=== PATIENT | male | born 1980 | race Caucasian/White ===

== ENCOUNTER 2019-09-07 22:02 | Emergency (ER) | payer MEDICAID ==
[~2019-09-07] VITALS: Ht 175.3 cm; Wt 79.4 kg
[2019-09-07 22:08] VITALS: BP_SYST 182
[2019-09-07 23:42] VITALS: BP_SYST 144
== END 2019-09-07 23:42 | disposition home or self-care (01) ==
LOC: SED 22:02
DX: L84 Corns and callosities (principal); I10 Essential (primary) hypertension; K21.9 Gastro-esophageal reflux disease without esophagitis; F17.200 Nicotine dependence, unspecified, uncomplicated
CPT/HCPCS: 99282

== ENCOUNTER 2021-10-21 03:21 | Emergency (ER) | payer MEDICAID ==
[~2021-10-21] VITALS: Ht 170.2 cm; Wt 81.6 kg
[2021-10-21 03:39] VITALS: BP_SYST 148
--- NOTE | 2021-10-21 05:00 | NUR ---
Pt placed in ER 4.
[2021-10-21] MEDS ORDERED: ONDANSETRON HCL 4 MG/2 ML VIAL IVP ONE (05:30)
[2021-10-21] MEDS ORDERED: KETOROLAC TROMETHAMINE 30 MG VIAL IVP ONE (05:30)
[2021-10-21] MEDS ORDERED: PIPERACILLIN/TAZO 3.375 GM in NS 50 ML IV ONE (05:30)
[2021-10-21] MEDS ORDERED: VANCOMYCIN HCL 1,000 MG in NS 250 ML IV ONE (05:30)
[2021-10-21] MEDS ORDERED: NACL 0.9% 1,000 ML IV ONE (05:30)
[2021-10-21] MEDS ORDERED: MORPHINE 4 MG INJ. 4 MG/ML VIAL IVP ONE (05:30)
[2021-10-21] MEDS ORDERED: PIPERACILLIN/TAZOBACTAM 3.375 GM/VIAL (ZOSYN) IV ONE (05:32)
[2021-10-21] MEDS ORDERED: VANCOMYCIN HCL 1000 MG/VIAL IV ONE (05:32)
[2021-10-21 06:32] LABS: CALCIUM 8.8 mg/dL (8.4-11.0); CREATININE 0.91 mg/dL (0.55-1.30); POTASSIUM 3.6 mmol/L (3.5-5.1)
[2021-10-21 06:34] LABS: BASOPHILS % (AUTO) 0.5 % (0.0-2.0); EOSINOPHILS # (AUTO) 0.1 K/uL (0.0-0.4); EOSINOPHILS % (AUTO) 1.3 % (0.0-4.0); HEMATOCRIT 35.6 % (36-54); HEMOGLOBIN 11.6 g/dL (14.0-18.0); LYMPHOCYTES % (AUTO) 21.2 % (20.5-51.5); MEAN CORPUSCULAR HEMOGLOBIN 26 pg (27-31); MEAN CORPUSCULAR HGB CONC 33 % (32-36); MEAN CORPUSCULAR VOLUME 78 fL (79.0-98.0); MONOCYTES # (AUTO) 0.7 K/uL (0.0-1.0); MONOCYTES % (AUTO) 13.9 % (1.7-9.3); NEUTROPHILS # (AUTO) 3.1 K/uL (1.8-7.7); NEUTROPHILS % (AUTO) 63.1 % (40.0-70.0); PLATELET COUNT (AUTO) 428 K/uL (130-430); RED BLOOD CELL COUNT(AUTO) 4.57 MIL/uL (4.2-6.2); WHITE BLOOD COUNT (AUTO) 4.8 K/uL (4.8-10.8)
[2021-10-21 06:38] LABS: ALBUMIN 3.2 g/dL (3.4-4.8); TOTAL BILIRUBIN 0.3 mg/dL (0.0-1.0)
[2021-10-21 07:09] LABS: ERYTHROCYTE SEDIMENTATION RATE 27 MM/HR (0-15)
--- NOTE | 2021-10-21 07:28 | NUR ---
Stable VSS Minimal pain To be admitted Awaiting bed on floor
[2021-10-21] MEDS ORDERED: NALOXONE HCL 2 MG/2 ML SYR ONE (07:41)
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
--- NOTE | 2021-10-21 08:34 | NUR ---
R LEG/CALF WOUND CULTURE SWABS DONE AND SENT TO LAB
[2021-10-21] MEDS ORDERED: HYDROmorphone 1 MG/ML INJ. CARTRIDGE IVP ONE (09:00)
--- NOTE | 2021-10-21 09:35 | NUR ---
ATTEMPTED TO DO COVID TEST, PT REFUSED STATES HE WANTS TO GO HOME AND NOT BE TRANSFERRED. DR LISA ARAUZ.
[2021-10-21 10:56] VITALS: BP_SYST 126
--- NOTE | 2021-10-21 11:03 | NUR ---
Stable Minimal pain States that he wishes to go home and has script for PO abx and wants to do that. MD has reassessed and Dc'd home To exit
== END 2021-10-21 11:03 | disposition left against medical advice (07) ==
LOC: SED 03:21
DX: L03.115 Cellulitis of right lower limb (principal); F15.20 Other stimulant dependence, uncomplicated; F10.10 Alcohol abuse, uncomplicated; Y90.9 Presence of alcohol in blood, level not specified; Z20.822 Contact with and (suspected) exposure to COVID-19
CPT/HCPCS: 36415; 73590; 80053; 85025; 85651; 87070; 87075; 87426; 96365; 96366; 96368; 96375; 99284; J1170; J1885; J2270; J2310; J2405; J2543; J3370

== ENCOUNTER 2021-10-26 10:52 | Emergency (ER) | payer MEDICAID ==
[~2021-10-26] VITALS: Ht 172.7 cm; Wt 81.6 kg
[2021-10-26 10:56] VITALS: BP_SYST 145
--- NOTE | 2021-10-26 10:59 | NUR ---
Patient to ER bed 4 to gown for evaluation. Side rails up. Report given to Eli PEREZ.
--- NOTE | 2021-10-26 11:03 | NUR ---
ER at bedside examining patient.
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
[2021-10-26 11:40] LABS: BASOPHILS # (AUTO) 0.1 K/uL (0.0-0.2); BASOPHILS % (AUTO) 0.8 % (0.0-2.0); EOSINOPHILS # (AUTO) 0.1 K/uL (0.0-0.4); EOSINOPHILS % (AUTO) 0.9 % (0.0-4.0); HEMATOCRIT 31.3 % (36-54); HEMOGLOBIN 10.5 g/dL (14.0-18.0); LYMPHOCYTES # (AUTO) 1.2 K/uL (1.0-5.5); LYMPHOCYTES % (AUTO) 13.1 % (20.5-51.5); MEAN CORPUSCULAR HEMOGLOBIN 26 pg (27-31); MEAN CORPUSCULAR HGB CONC 34 % (32-36); MEAN CORPUSCULAR VOLUME 77 fL (79.0-98.0); MONOCYTES # (AUTO) 0.6 K/uL (0.0-1.0); MONOCYTES % (AUTO) 6.9 % (1.7-9.3); NEUTROPHILS # (AUTO) 7.1 K/uL (1.8-7.7); NEUTROPHILS % (AUTO) 78.3 % (40.0-70.0); PLATELET COUNT (AUTO) 476 K/uL (130-430); RED BLOOD CELL COUNT(AUTO) 4.06 MIL/uL (4.2-6.2); RED CELL DISTRIBUTION WIDTH 15.1 % (9.0-15.0)
[2021-10-26] MEDS ORDERED: ONDANSETRON HCL 4 MG/2 ML VIAL IVP ONE (11:45)
[2021-10-26] MEDS ORDERED: MORPHINE 4 MG INJ. 4 MG/ML VIAL IVP ONE (11:45)
[2021-10-26 12:02] LABS: CALCIUM 8.5 mg/dL (8.4-11.0); CREATININE 0.92 mg/dL (0.55-1.30); POTASSIUM 3.4 mmol/L (3.5-5.1)
[2021-10-26 12:08] LABS: ALBUMIN 3.1 g/dL (3.4-4.8); TOTAL BILIRUBIN 0.6 mg/dL (0.0-1.0)
[2021-10-26] MEDS ORDERED: VANCOMYCIN HCL 1,000 MG in NS 250 ML IV ONE (12:45)
[2021-10-26] MEDS ORDERED: cefTRIAXone 1 GM IVPB PREMIX 50 ML IV ONE (12:45)
[2021-10-26] MEDS ORDERED: VANCOMYCIN HCL 1000 MG/VIAL IV ONE (14:24)
--- NOTE | 2021-10-26 17:10 | NUR ---
SPOKE WITH CHRIS BEASLEY FROM [facility] TO GIVE REPORT. PT WILL BE GOING TO [facility] [address], ACCEPTING MD DR DE.
--- NOTE | 2021-10-26 17:23 | NUR ---
TRANSPO ETA 1830
--- NOTE | 2021-10-26 19:45 | NUR ---
Patient to be transferred to [facility]. Is being transferred due to insurance request. Receiving facility has accepting physician and available space. ER physician has signed transfer form. Patient or responsible alliance party has agreed to transfer and signed form. Patient belongings inventoried and will be sent with patient. Copy of nursing notes, lab reports, EKG, Physicians Orders and X-rays to be sent with patient. Report called to Suzanne by Nurse Benitez at receiving facility. Receiving physician is Dr Lugo. [facility] ambulance service to transport pt.
[2021-10-26 19:46] VITALS: BP_SYST 132
== END 2021-10-26 18:30 | disposition short-term general hospital (02) ==
LOC: SED 10:52
DX: T86.822 Skin graft (allograft) (autograft) infection (principal); F10.129 Alcohol abuse with intoxication, unspecified; F15.20 Other stimulant dependence, uncomplicated; Z20.822 Contact with and (suspected) exposure to COVID-19
CPT/HCPCS: 36415; 73590; 80053; 83605; 85025; 87040; 87426; 96365; 96367; 96375; 99284; J0696; J2270; J2405; J3370; 96366

== ENCOUNTER 2022-01-17 17:44 | Emergency (ER) | payer MEDICAID ==
[~2022-01-17] VITALS: Ht 170.2 cm; Wt 81.6 kg
[2022-01-17 17:53] VITALS: BP_SYST 152
== END 2022-01-17 22:00 | disposition left against medical advice (07) ==
LOC: SED 17:44
DX: M79.661 Pain in right lower leg (principal); I10 Essential (primary) hypertension; Z53.21 Procedure and treatment not carried out due to patient leaving prior to being seen by health care provider

== ENCOUNTER 2022-02-25 06:26 | Emergency (ER) | payer MEDICAID ==
[~2022-02-25] VITALS: Ht 170.2 cm; Wt 81.6 kg
[2022-02-25 06:34] VITALS: BP_SYST 148
[2022-02-25] MEDS ORDERED: VANCOMYCIN HCL 1,000 MG in NS 250 ML IV ONE (07:30)
[2022-02-25] MEDS ORDERED: ONDANSETRON HCL 4 MG/2 ML VIAL IVP ONE (07:30)
[2022-02-25] MEDS ORDERED: MORPHINE 4 MG INJ. 4 MG/ML VIAL IVP ONE (07:30)
[2022-02-25] MEDS ORDERED: PIPERACILLIN/TAZO 3.375 GM in NS 50 ML IV ONE (07:30)
[2022-02-25] MEDS ORDERED: VANCOMYCIN HCL 1000 MG/VIAL IV ONE (07:50)
[2022-02-25] MEDS ORDERED: PIPERACILLIN/TAZOBACTAM 3.375 GM/VIAL (ZOSYN) IV ONE (07:50)
[2022-02-25 08:27] LABS: BASOPHILS % (AUTO) 0.5 % (0.0-2.0); EOSINOPHILS # (AUTO) 0.6 K/uL (0.0-0.4); HEMATOCRIT 35.8 % (36-54); LYMPHOCYTES # (AUTO) 1.5 K/uL (1.0-5.5); LYMPHOCYTES % (AUTO) 19.9 % (20.5-51.5); MEAN CORPUSCULAR VOLUME 79 fL (79.0-98.0); MONOCYTES # (AUTO) 0.6 K/uL (0.0-1.0); MONOCYTES % (AUTO) 8.7 % (1.7-9.3); NEUTROPHILS # (AUTO) 4.6 K/uL (1.8-7.7); NEUTROPHILS % (AUTO) 62.9 % (40.0-70.0); PLATELET COUNT (AUTO) 494 K/uL (130-430); RED BLOOD CELL COUNT(AUTO) 4.55 MIL/uL (4.2-6.2); RED CELL DISTRIBUTION WIDTH 16.2 % (9.0-15.0); WHITE BLOOD COUNT (AUTO) 7.4 K/uL (4.8-10.8)
[2022-02-25 08:53] LABS: ANION GAP 7 (5-15); CALCIUM 8.7 mg/dL (8.4-11.0); CHLORIDE 102 mmol/L (98-107); CREATININE 1.06 mg/dL (0.55-1.30); GLUCOSE 121 mg/dL (70-99); POTASSIUM 3.8 mmol/L (3.5-5.1); UREA NITROGEN, BLOOD 11 mg/dL (8-21)
[2022-02-25 09:02] LABS: GFR AFRICAN AMERICAN 99 mL/min (>90)
[2022-02-25 09:08] LABS: ERYTHROCYTE SEDIMENTATION RATE 17 MM/HR (0-15)
[2022-02-25 09:15] LABS: ALANINE AMINOTRANSFERASE 22 U/L (12-78); ALBUMIN 3.2 g/dL (3.4-4.8); ASPARTATE AMINOTRANSFERASE 15 U/L (10-37); TOTAL BILIRUBIN 0.2 mg/dL (0.0-1.0)
[2022-02-25 10:18] LABS: C-REACTIVE PROTEIN QUANT < 0.2 mg/dL (0-0.5)
[2022-02-25 14:40] VITALS: BP_SYST 138
== END 2022-02-25 14:40 | disposition admitted as inpatient to this hospital (09) ==
LOC: SED 06:26
DX: L03.115 Cellulitis of right lower limb (principal); M79.661 Pain in right lower leg; F17.290 Nicotine dependence, other tobacco product, uncomplicated; Z79.899 Other long term (current) drug therapy; Z20.822 Contact with and (suspected) exposure to COVID-19
CPT/HCPCS: 99285; 96365; 96375; 96367; 96366; 87426; 80053; 85025; 85651; 86140; 87040; 36415; 73590; 83605; J2405; J2543; J3370; J2270

== ENCOUNTER 2022-03-31 23:02 | Emergency (ER) | payer MEDICAID ==
[~2022-03-31] VITALS: Ht 170.2 cm; Wt 81.6 kg
[2022-03-31 23:10] VITALS: BP_SYST 157
[2022-04-01] MEDS ORDERED: PIPERACILLIN/TAZO 3.375 GM in NS 50 ML IV ONE (00:30)
[2022-04-01] MEDS ORDERED: VANCOMYCIN HCL 1,000 MG in NS 250 ML IV ONE (00:30)
[2022-04-01] MEDS ORDERED: MORPHINE 4 MG INJ. 4 MG/ML VIAL IVP ONE (00:30)
[2022-04-01] MEDS ORDERED: NACL 0.9% 1,000 ML IV ONE (00:30)
[2022-04-01] MEDS ORDERED: DIPHENHYDRAMINE HCL 12.5 MG/5 ML UDC PO ONE (00:30)
[2022-04-01] MEDS ORDERED: PIPERACILLIN/TAZOBACTAM 3.375 GM/VIAL (ZOSYN) IV ONE (01:07)
[2022-04-01] MEDS ORDERED: VANCOMYCIN HCL 1000 MG/VIAL IV ONE (01:07)
[2022-04-01 01:38] LABS: BASOPHILS # (AUTO) 0.1 K/uL (0.0-0.2); BASOPHILS % (AUTO) 0.6 % (0.0-2.0); EOSINOPHILS # (AUTO) 0.7 K/uL (0.0-0.4); HEMATOCRIT 37.4 % (36-54); HEMOGLOBIN 12.4 g/dL (14.0-18.0); LYMPHOCYTES # (AUTO) 2.3 K/uL (1.0-5.5); LYMPHOCYTES % (AUTO) 23.2 % (20.5-51.5); MEAN CORPUSCULAR HEMOGLOBIN 27 pg (27-31); MEAN CORPUSCULAR HGB CONC 33 % (32-36); MEAN CORPUSCULAR VOLUME 82 fL (79.0-98.0); MONOCYTES # (AUTO) 0.9 K/uL (0.0-1.0); MONOCYTES % (AUTO) 9.2 % (1.7-9.3); NEUTROPHILS # (AUTO) 5.9 K/uL (1.8-7.7); PLATELET COUNT (AUTO) 398 K/uL (130-430); RED BLOOD CELL COUNT(AUTO) 4.59 MIL/uL (4.2-6.2); RED CELL DISTRIBUTION WIDTH 16.8 % (9.0-15.0); WHITE BLOOD COUNT (AUTO) 9.8 K/uL (4.8-10.8)
[2022-04-01 02:02] LABS: ANION GAP 6 (5-15); CALCIUM 8.9 mg/dL (8.4-11.0); CHLORIDE 104 mmol/L (98-107); CREATININE 0.99 mg/dL (0.55-1.30); GLUCOSE 134 mg/dL (70-99); UREA NITROGEN, BLOOD 12 mg/dL (8-21)
[2022-04-01 02:06] LABS: ALANINE AMINOTRANSFERASE 21 U/L (12-78); ALBUMIN 3.4 g/dL (3.4-4.8); ASPARTATE AMINOTRANSFERASE 9 U/L (10-37); TOTAL BILIRUBIN 0.1 mg/dL (0.0-1.0)
[2022-04-01 02:08] LABS: ALCOHOL, BLOOD < 3 mg/dL (<10); GFR AFRICAN AMERICAN 107 mL/min (>90)
[2022-04-01 02:19] LABS: ERYTHROCYTE SEDIMENTATION RATE 12 MM/HR (0-15)
[2022-04-01 02:54] VITALS: BP_SYST 136
== END 2022-04-01 03:05 | disposition left against medical advice (07) ==
LOC: SED 23:02
DX: M79.661 Pain in right lower leg (principal); F10.10 Alcohol abuse, uncomplicated; F15.20 Other stimulant dependence, uncomplicated; Z79.899 Other long term (current) drug therapy; Y90.6 Blood alcohol level of 120-199 mg/100 ml
CPT/HCPCS: 99284; 80053; 82550; 85025; 85651; 36415; 83605; 96365; 96367; 96375; 73590; G0482; J2543; J3370; J2270

== ENCOUNTER 2022-05-25 04:06 | Emergency (ER) | payer MEDICAID ==
[~2022-05-25] VITALS: Ht 170.2 cm; Wt 81.6 kg
[2022-05-25 04:20] VITALS: BP_SYST 150
--- NOTE | 2022-05-25 04:20 | NUR ---
Patient triaged and placed in waiting room. VSS and patient appears in no acute distress at this time. Accompanied by fam member, awaiting available bed, and MD notified of need for MSE.
--- NOTE | 2022-05-25 05:08 | NUR ---
Dr Solomon examing pt in the triage room.
[2022-05-25] MEDS ORDERED: IBUP-1971 PO (05:26)
[2022-05-25] MEDS ORDERED: HYDR-3917 PO (05:26)
[2022-05-25] MEDS ORDERED: MORPHINE 4 MG INJ. 4 MG/ML VIAL IM ONE (05:30)
[2022-05-25] MEDS ORDERED: DIPHENHYDRAMINE HCL 25 MG CAPSULE PO ONE (05:30)
--- NOTE | 2022-05-25 06:28 | NUR ---
Patient given written and verbal discharge instructions and verbalizes understanding. ER MD discussed with patient the results and treatment provided. Patient in stable condition. ID arm band removed. Rx of [place] and Ibuprofen given. Patient educated on pain management and to follow up with PMD. Pain Scale 4/10. Opportunity for questions provided and answered. Medication side effect fact sheet provided.
[2022-05-25 06:30] VITALS: BP_SYST 143
== END 2022-05-25 06:30 | disposition home or self-care (01) ==
LOC: SED 04:06
DX: L08.9 Local infection of the skin and subcutaneous tissue, unspecified (principal); M25.561 Pain in right knee; F17.200 Nicotine dependence, unspecified, uncomplicated; Z88.6 Allergy status to analgesic agent; Z79.899 Other long term (current) drug therapy
CPT/HCPCS: 99283; 96372; Q0163; J2270

== ENCOUNTER 2022-10-05 03:11 | Inpatient (IN) | payer MEDICAID ==
[~2022-10-05] VITALS: Ht 170.2 cm; Wt 83.9 kg
[~2022-10-05 03:11] MED LIST: HYDR-3917 PO; IBUP-1971 PO
[2022-10-05 03:20] VITALS: BP_SYST 136
[2022-10-05] MEDS ORDERED: PIPERACILLIN/TAZO 3.375 GM in D5W 50 ML IV ONE (03:30)
[2022-10-05] MEDS ORDERED: VANCOMYCIN HCL 1,000 MG in NS 250 ML IV ONE (03:30)
[2022-10-05] MEDS ORDERED: PIPERACILLIN/TAZOBACTAM 3.375 GM/VIAL (ZOSYN) IV ONE ×2 (03:56→22:07)
[2022-10-05] MEDS ORDERED: VANCOMYCIN HCL 1000 MG/VIAL IV ONE ×2 (03:56→22:06)
[2022-10-05 04:14] LABS: BASOPHILS % (AUTO) 0.3 % (0.0-2.0); EOSINOPHILS # (AUTO) 0.2 K/uL (0.0-0.4); EOSINOPHILS % (AUTO) 1.9 % (0.0-4.0); HEMATOCRIT 34.3 % (36-54); HEMOGLOBIN 11.3 g/dL (14.0-18.0); LYMPHOCYTES # (AUTO) 1.4 K/uL (1.0-5.5); MEAN CORPUSCULAR HEMOGLOBIN 28 pg (27-31); MEAN CORPUSCULAR HGB CONC 33 % (32-36); MEAN CORPUSCULAR VOLUME 85 fL (79.0-98.0); MONOCYTES # (AUTO) 0.6 K/uL (0.0-1.0); MONOCYTES % (AUTO) 7.1 % (1.7-9.3); NEUTROPHILS # (AUTO) 6.8 K/uL (1.8-7.7); NEUTROPHILS % (AUTO) 74.7 % (40.0-70.0); PLATELET COUNT (AUTO) 623 K/uL (130-430); RED BLOOD CELL COUNT(AUTO) 4.02 MIL/uL (4.2-6.2); RED CELL DISTRIBUTION WIDTH 14.9 % (9.0-15.0); WHITE BLOOD COUNT (AUTO) 9.1 K/uL (4.8-10.8)
[2022-10-05 04:27] LABS: CALCIUM 8.2 mg/dL (8.4-11.0); CREATININE 1.01 mg/dL (0.55-1.30)
[2022-10-05 04:32] LABS: ALBUMIN 3.2 g/dL (3.4-4.8); C-REACTIVE PROTEIN QUANT 0.8 mg/dL (0-0.5); TOTAL BILIRUBIN 0.2 mg/dL (0.0-1.0)
[2022-10-05 06:55] LABS: ERYTHROCYTE SEDIMENTATION RATE 20 MM/HR (0-15)
[2022-10-05 07:18] LABS: BILIRUBIN,URINE NEGATIVE (NEGATIVE); BLOOD, URINE NEGATIVE (NEGATIVE); CLARITY/URINE CLEAR (CLEAR); COLOR,URINE YELLOW (YELLOW); GLUCOSE,URINE NEGATIVE (NEGATIVE); KETONES,URINE NEGATIVE (NEGATIVE); LEUKOCYTE ESTERASE ,URINE NEGATIVE (NEGATIVE); NITRITE, URINE NEGATIVE (NEGATIVE); PH,URINE 5.5 (5.0-8.0); PROTEIN URINE NEGATIVE (NEGATIVE); UROBILINOGEN,URINE 0.2 (0.2-1.0)
[2022-10-05 07:45] LABS: BARBITURATE, URINE NEGATIVE (NEG <=200)
[2022-10-05 07:46] LABS: BENZODIAZEPINE, URINE NEGATIVE (NEG <=150); CANNABINOID, URINE NEGATIVE (NEG <=50); COCAINE, URINE NEGATIVE (NEG <=150); METHAMPHETAMINES SCREEN,URINE POSITIVE (NEG <=500); OPIATE, URINE NEGATIVE (NEG <=100); PHENCYCLIDINE SCREEN,URINE NEGATIVE (NEG <=25); UR TRICYCLIC ANTIDEPRESSANTS NEGATIVE (NEG <=300); URINE AMPHETAMINE POSITIVE (NEG <=500); URINE METHADONE NEGATIVE (NEG <=200); URINE OXYCODONE SCREEN NEGATIVE (NEG <=100); URINE PROPOXYPHENE SCREEN NEGATIVE (NEG <=300)
[2022-10-05 14:01] VITALS: BP_SYST 125
[2022-10-05 14:02] VITALS: BP_SYST 124
[2022-10-05] MEDS ORDERED: ACETAMINOPHEN 325 MG TABLET PO PRN (14:30)
[2022-10-05] MEDS: KETOROLAC TROMETHAMINE 30 MG VIAL IVP PRN ×2 (15:13→22:36)
[2022-10-05] MEDS ORDERED: POTASSIUM CHLORIDE 20 MEQ TAB.PRT.SR PO ONE (16:00)
[2022-10-05 16:12] VITALS: BP_SYST 129
[2022-10-05 20:27] VITALS: BP_SYST 120
[2022-10-05] MEDS: traMADol HCL HCL 50 MG TABLET (ULTRAM) PO PRN (20:44)
[2022-10-05] MEDS: VANCOMYCIN HCL 1.25 GM/NS 250 ML IV SCH (21:00)
[2022-10-05] MEDS ORDERED: VANCOMYCIN HCL 500 MG/VIAL IV ONE (22:06)
[2022-10-05] MEDS ORDERED: CEFEPIME 2 GM/VIAL (MAXIPIME) ONE (22:08)
[2022-10-05] MEDS: CEFEPIME 2 GM in D5W 100 ML IV SCH (22:35)
[2022-10-06] MEDS: PIPERACILLIN/TAZO 3.375/DEX-IS 50 ML IV SCH ×4 (06:00→17:02)
[2022-10-06] MEDS: traMADol HCL HCL 50 MG TABLET (ULTRAM) PO PRN (07:02)
[2022-10-06 08:07] VITALS: BP_SYST 129
[2022-10-06] MEDS: CEFEPIME 2 GM in D5W 100 ML IV SCH ×2 (09:08→22:38)
[2022-10-06] MEDS: KETOROLAC TROMETHAMINE 30 MG VIAL IVP PRN (09:17)
[2022-10-06] MEDS: VANCOMYCIN HCL 1.25 GM/NS 250 ML IV SCH ×2 (12:08→20:54)
[2022-10-06 12:40] VITALS: BP_SYST 135
[2022-10-06] MEDS ORDERED: NALOXONE HCL 0.4 MG/ML AMP (NARCAN) IVP PRN (13:00)
[2022-10-06] MEDS ORDERED: IBUPROFEN 800 MG TABLET PO PRN (13:00)
[2022-10-06] MEDS ORDERED: ONDANSETRON HCL 4 MG/2 ML VIAL IVP PRN (13:00)
[2022-10-06 16:26] VITALS: BP_SYST 136
[2022-10-06] MEDS: NORMAL SALINE 5 ML DISP.SYRIN IVF SCH ×2 (17:02→22:39)
[2022-10-06 20:00] VITALS: BP_SYST 146
[2022-10-06] MEDS: HYDROcodone/ACETAMIN 5-325 MG TAB (NORCO/ VICODIN) PO PRN (20:59)
[2022-10-07 00:58] VITALS: BP_SYST 138
[2022-10-07] MEDS: PIPERACILLIN/TAZO 3.375/DEX-IS 50 ML IV SCH ×2 (01:04→05:23)
[2022-10-07] MEDS: LORazepam 2 MG/ML VIAL IVP PRN ×3 (01:07→22:00)
[2022-10-07 04:00] VITALS: BP_SYST 139
[2022-10-07] MEDS: NORMAL SALINE 5 ML DISP.SYRIN IVF SCH ×3 (05:23→22:02)
[2022-10-07 06:01] LABS: BASOPHILS % (AUTO) 0.7 % (0.0-2.0); EOSINOPHILS # (AUTO) 0.2 K/uL (0.0-0.4); HEMATOCRIT 38.7 % (36-54); HEMOGLOBIN 12.8 g/dL (14.0-18.0); LYMPHOCYTES # (AUTO) 1.1 K/uL (1.0-5.5); MEAN CORPUSCULAR HEMOGLOBIN 28 pg (27-31); MEAN CORPUSCULAR HGB CONC 33 % (32-36); MEAN CORPUSCULAR VOLUME 85 fL (79.0-98.0); MONOCYTES # (AUTO) 0.5 K/uL (0.0-1.0); MONOCYTES % (AUTO) 12.1 % (1.7-9.3); NEUTROPHILS # (AUTO) 2.3 K/uL (1.8-7.7); NEUTROPHILS % (AUTO) 56.2 % (40.0-70.0); PLATELET COUNT (AUTO) 457 K/uL (130-430); RED BLOOD CELL COUNT(AUTO) 4.55 MIL/uL (4.2-6.2); RED CELL DISTRIBUTION WIDTH 14.9 % (9.0-15.0); WHITE BLOOD COUNT (AUTO) 4.1 K/uL (4.8-10.8)
[2022-10-07 06:58] LABS: C-REACTIVE PROTEIN QUANT 0.7 mg/dL (0-0.5); CALCIUM 8.2 mg/dL (8.4-11.0); CREATININE 0.75 mg/dL (0.55-1.30); TOTAL BILIRUBIN 0.2 mg/dL (0.0-1.0)
[2022-10-07 08:00] VITALS: BP_SYST 129
[2022-10-07] MEDS: VANCOMYCIN HCL 1.25 GM/NS 250 ML IV SCH (08:27)
[2022-10-07] MEDS: CEFEPIME 2 GM in D5W 100 ML IV SCH (08:28)
[2022-10-07 08:45] LABS: ERYTHROCYTE SEDIMENTATION RATE 38 MM/HR (0-15)
[2022-10-07] MEDS: HYDROcodone/ACETAMIN 5-325 MG TAB (NORCO/ VICODIN) PO PRN ×2 (08:55→22:01)
[2022-10-07 11:37] VITALS: BP_SYST 125
[2022-10-07] MEDS: MEROPENEM 1 GM in NS 100 ML IV SCH ×2 (14:59→21:55)
[2022-10-07 16:22] VITALS: BP_SYST 127
[2022-10-07 20:00] VITALS: BP_SYST 121
[2022-10-08 04:00] VITALS: BP_SYST 128
[2022-10-08 05:41] LABS: BASOPHILS % (AUTO) 0.8 % (0.0-2.0); EOSINOPHILS # (AUTO) 0.2 K/uL (0.0-0.4); EOSINOPHILS % (AUTO) 3.1 % (0.0-4.0); HEMATOCRIT 37.6 % (36-54); HEMOGLOBIN 12.4 g/dL (14.0-18.0); LYMPHOCYTES # (AUTO) 1.2 K/uL (1.0-5.5); MEAN CORPUSCULAR HEMOGLOBIN 28 pg (27-31); MEAN CORPUSCULAR HGB CONC 33 % (32-36); MEAN CORPUSCULAR VOLUME 86 fL (79.0-98.0); MONOCYTES # (AUTO) 0.5 K/uL (0.0-1.0); MONOCYTES % (AUTO) 10.2 % (1.7-9.3); NEUTROPHILS # (AUTO) 3.2 K/uL (1.8-7.7); NEUTROPHILS % (AUTO) 61.9 % (40.0-70.0); PLATELET COUNT (AUTO) 425 K/uL (130-430); RED CELL DISTRIBUTION WIDTH 15.4 % (9.0-15.0); WHITE BLOOD COUNT (AUTO) 5.1 K/uL (4.8-10.8)
[2022-10-08] MEDS: MEROPENEM 1 GM in NS 100 ML IV SCH ×2 (06:23→14:00)
[2022-10-08 06:24] LABS: C-REACTIVE PROTEIN QUANT 0.3 mg/dL (0-0.5); CALCIUM 8.5 mg/dL (8.4-11.0); CREATININE 0.76 mg/dL (0.55-1.30)
[2022-10-08] MEDS: NORMAL SALINE 5 ML DISP.SYRIN IVF SCH ×2 (06:24→14:00)
[2022-10-08 07:32] LABS: ERYTHROCYTE SEDIMENTATION RATE 32 MM/HR (0-15)
[2022-10-08 08:00] VITALS: BP_SYST 121
[2022-10-08] MEDS: HYDROcodone/ACETAMIN 5-325 MG TAB (NORCO/ VICODIN) PO PRN (08:21)
[2022-10-08] MEDS: LORazepam 2 MG/ML VIAL IVP PRN (09:28)
[2022-10-26] MEDS ORDERED: HYDROcodone/ACETAMIN 5-325 MG TAB (NORCO/ VICODIN) PO PRN (15:30)
[2022-10-26] MEDS ORDERED: ONDANSETRON HCL 4 MG/2 ML VIAL IVP PRN (15:30)
[2022-10-26] MEDS ORDERED: MORPHINE 2 MG/ML INJ. SYRINGE IVP PRN (15:30)
[2022-10-26] MEDS ORDERED: LORazepam 2 MG/ML VIAL IVP PRN (15:30)
[2022-10-26] MEDS ORDERED: ACETAMINOPHEN 325 MG TABLET PO PRN (15:30)
[2022-10-26] MEDS ORDERED: NALOXONE HCL 0.4 MG/ML AMP (NARCAN) IVP PRN ×3 (15:30)
[2022-10-26] MEDS ORDERED: HYDROcodone/ACETAMIN 10-325 MG TAB PO PRN (15:30)
== END 2022-10-08 14:30 | disposition left against medical advice (07) | DRG 344 ==
LOC: SED 03:11 → SMU 09:52
PROVIDERS: ADMIT Preventive Medicine Preventive Medicine/Occupational Environmental Medicine; ATTEND Preventive Medicine Preventive Medicine/Occupational Environmental Medicine
DX: M86.161 Other acute osteomyelitis, right tibia and fibula (principal); E44.1 Mild protein-calorie malnutrition; L03.115 Cellulitis of right lower limb; E83.51 Hypocalcemia; E88.09 Other disorders of plasma-protein metabolism, not elsewhere classified; M86.8X6 Other osteomyelitis, lower leg; D75.839 Thrombocytosis, unspecified; Z20.822 Contact with and (suspected) exposure to COVID-19; D64.9 Anemia, unspecified; E87.6 Hypokalemia; D72.819 Decreased white blood cell count, unspecified; R73.9 Hyperglycemia, unspecified; Z79.899 Other long term (current) drug therapy; Z87.828 Personal history of other (healed) physical injury and trauma; Z87.898 Personal history of other specified conditions; Z88.0 Allergy status to penicillin; Z79.1 Long term (current) use of non-steroidal anti-inflammatories (NSAID)
CPT/HCPCS: 36415; 71045; 73590-TC; 78315; 80048; 80053; 80307; 81003; 83605; 85025; 85610-TC; 85651-TC; 85730-TC; 86140; 87040; 87070-TC; 87081; 87086; 87186-TC; 93005; 96365; 96366; 96367; 96375; 97116-GP; 99285; A9503; J0692; J1885; J2060; J2185; J2543; J3370; J7060

== ENCOUNTER 2022-10-26 03:27 | Inpatient (IN) | payer MEDICAID ==
[~2022-10-26] VITALS: Ht 170.2 cm; Wt 81.6 kg
[2022-10-26 03:43] VITALS: BP_SYST 150
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
--- NOTE | 2022-10-26 03:50 | NUR ---
Patient to ER bed 06 to gown for evaluation. Side rails up. Report given to CHRIS SEPULVEDA.
--- NOTE | 2022-10-26 03:55 | NUR ---
ER Dr. LINARES at bedside examining patient.
[2022-10-26] MEDS ORDERED: KETOROLAC TROMETHAMINE 15 MG VIAL IVP ONE (04:15)
--- NOTE | 2022-10-26 04:57 | NUR ---
PT PROVIDED STERILE PICC LINE DRESSING CHANGE, PT TOLERATED WELL.
[2022-10-26 05:04] LABS: BASOPHILS # (AUTO) 0.1 K/uL (0.0-0.2); BASOPHILS % (AUTO) 0.5 % (0.0-2.0); EOSINOPHILS # (AUTO) 0.3 K/uL (0.0-0.4); EOSINOPHILS % (AUTO) 2.6 % (0.0-4.0); HEMATOCRIT 32.4 % (36-54); HEMOGLOBIN 10.6 g/dL (14.0-18.0); LYMPHOCYTES % (AUTO) 9.9 % (20.5-51.5); MEAN CORPUSCULAR HEMOGLOBIN 27 pg (27-31); MEAN CORPUSCULAR HGB CONC 33 % (32-36); MEAN CORPUSCULAR VOLUME 82 fL (79.0-98.0); MONOCYTES # (AUTO) 0.4 K/uL (0.0-1.0); MONOCYTES % (AUTO) 3.6 % (1.7-9.3); NEUTROPHILS # (AUTO) 8.6 K/uL (1.8-7.7); NEUTROPHILS % (AUTO) 83.4 % (40.0-70.0); PLATELET COUNT (AUTO) 494 K/uL (130-430); RED BLOOD CELL COUNT(AUTO) 3.93 MIL/uL (4.2-6.2); RED CELL DISTRIBUTION WIDTH 14.6 % (9.0-15.0); WHITE BLOOD COUNT (AUTO) 10.4 K/uL (4.8-10.8)
[2022-10-26 05:11] LABS: CALCIUM 7.9 mg/dL (8.4-11.0); CREATININE 0.84 mg/dL (0.55-1.30)
[2022-10-26 05:13] LABS: ERYTHROCYTE SEDIMENTATION RATE 36 MM/HR (0-15)
[2022-10-26 05:16] LABS: ALBUMIN 2.8 g/dL (3.4-4.8); C-REACTIVE PROTEIN QUANT 7.6 mg/dL (0-0.5); TOTAL BILIRUBIN 0.3 mg/dL (0.0-1.0)
[2022-10-26] MEDS ORDERED: CEFEPIME 2 GM in D5W 100 ML IV ONE (05:30)
[2022-10-26] MEDS ORDERED: VANCOMYCIN HCL 1,000 MG in NS 250 ML IV ONE (05:30)
[2022-10-26] MEDS ORDERED: CEFEPIME 1 GM/VIAL (MAXIPIME) ONE (05:31)
[2022-10-26] MEDS ORDERED: VANCOMYCIN HCL 1000 MG/VIAL IV ONE (06:57)
--- NOTE | 2022-10-26 07:38 | NUR ---
Pt resting with Vancomycin running without issue. Pt aaox3, respirations even and unlabored. Right lower leg with open wound yellow drainage with serous fluid. Sutures noted to right ankle with pinkness. Pt has recent diagnosis of osteomylitis from 09/05 hospital visit. Pt with PICC line to right arm, dressing clean dry and intact.
--- NOTE | 2022-10-26 09:32 | NUR ---
Pt ambulates with steady gait and assistance of cane.
--- NOTE | 2022-10-26 09:38 | NUR ---
Called Pizzamaker: Velvet for admission.
--- NOTE | 2022-10-26 09:43 | NUR ---
Per Elevator Repair Mechanic Dr. Zeyad Verdin from [facility]. will call our
--- NOTE | 2022-10-26 09:45 | NUR ---
Die Developer will arrange [facility] Transport to [facility].
--- NOTE | 2022-10-26 09:55 | NUR ---
Pt informed of transfer to [facility] pending.
--- NOTE | 2022-10-26 10:44 | NUR ---
Admit bed requested Patient will be admitted to care of . Admitted to medsurg unit. Diagnosis Osteomyelitis Inpatient (Yes or No) yes Observation (Yes or No) no Orientation concerns or request close to nursing station (Yes or No) no Covid Status n/a On vent or bipap no Isolation requirements no Needs a sitter no From Home (Yes or if No enter name of facility) home Requires Dialysis (Yes or No) no Med Rec Completed (Yes of No) pending
--- NOTE | 2022-10-26 10:50 | NUR ---
PT states no medication to reconcile.
--- NOTE | 2022-10-26 11:15 | NUR ---
Report given to CHRIS Marie of [facility] for questions offered.
--- NOTE | 2022-10-26 11:36 | NUR ---
Swabbed for MRSA, sent to the lab.
[2022-10-26 11:50] VITALS: BP_SYST 144
--- NOTE | 2022-10-26 12:04 | NUR ---
Patient will be admitted to care of [facility]. Admitted to MEDSURG unit. Will go to MEDSUR. Belongings list completed. Complete and up to date summary report printed. SBAR report to be given at bedside with opportunity for questions.
--- NOTE | 2022-10-26 12:05 | NUR ---
ADMISSION Pt arrived from ED via gurney to room with belongings and cane. Pt ambulated to bed independently. Pt was oriented to room and nursing routines and procedures. Questions/concerns were answered at this time. Call light within reach.
[2022-10-26 13:08] VITALS: BP_SYST 144
--- NOTE | 2022-10-26 14:15 | NUR ---
Note Pt's MAGDALENA PICC intact and patent. Pt resting in bed, admission assessment completed. No needs noted at this time Call light within reach.
[2022-10-26 16:00] VITALS: BP_SYST 142
[2022-10-26] MEDS ORDERED: ONDANSETRON HCL 4 MG/2 ML VIAL IVP PRN (16:00)
[2022-10-26] MEDS ORDERED: MORPHINE 2 MG/ML INJ. SYRINGE IVP PRN (16:00)
[2022-10-26] MEDS ORDERED: HYDROcodone/ACETAMIN 10-325 MG TAB PO PRN (16:00)
[2022-10-26] MEDS ORDERED: HYDROcodone/ACETAMIN 5-325 MG TAB (NORCO/ VICODIN) PO PRN (16:00)
[2022-10-26] MEDS ORDERED: LORazepam 2 MG/ML VIAL IVP PRN (16:00)
[2022-10-26] MEDS ORDERED: NALOXONE HCL 0.4 MG/ML AMP (NARCAN) IVP PRN ×3 (16:00)
[2022-10-26] MEDS ORDERED: IBUPROFEN 800 MG TABLET PO PRN ×2 (16:00→16:15)
--- NOTE | 2022-10-26 17:16 | NUR ---
CONSULTATION PAGED/CALLED Reason for Consultation: OSTEOMYELITIS Person Who was Notified: LOTTIE TELLO Consulting Physician: CHAD Support Engineer Specialty: ID Ordering Physician: DR. DE LOS SANTOS
--- NOTE | 2022-10-26 17:18 | NUR ---
CONSULTATION PAGED/CALLED Reason for Consultation: OSTEOMYELITIS Person Who was Notified: EXCHANGE POSTING CLERK Consulting Physician: DR. MCINTYRE Buckle Gluer Specialty: ORTHO SURGERON Ordering Physician: DR. DE LOS SANTOS Addendum: 10/26/22 at 1725 by Asha Gaxiola LVN CONSULTATION PAGED/CALLED Reason for Consultation: OSTEOMYELITIS Person Who was Notified: DR. MCINTYRE MADE AWARE. Consulting Physician: DR. MCINTYRE Buckle Gluer Specialty: ORTHO SURGERON Ordering Physician: DR. DE LOS SANTOS
--- NOTE | 2022-10-26 17:25 | NUR ---
NOTE Dr Diaz (ortho) called and update on pt's status given. Dr Diaz will come in to see pt tomorrow.
--- NOTE | 2022-10-26 18:50 | NUR ---
End of shift Pt resting in bed after finishing her dinner. Pt's MAGDALENA PICC intact and patent. Pt was checked on q1' and PRN all shift for needs and care. Pt was maintained with safety precautions all shift. Pt's bed in low position and pt alarm on. Side rails raised. No needs noted at this time. Call light within reach. RLE wound was photographed, wound was cleaned and dressing changed. No severe pain/discomfort noted all shift.
--- NOTE | 2022-10-26 19:52 | NUR ---
patient very adamant on leaving, walks out through ER refusing removal of PICC notified charge nurse to notify police - talked to Bert patient did sign ama form offered my nurses ml and jocy patient educated about risk of refusal of removing picc and leaving hospital without further treatment patient continued to walk away saying "i have to go" patient ambulating with cane
[2022-10-26] MEDS ORDERED: NORMAL SALINE 5 ML DISP.SYRIN IVF SCH (22:00)
[2022-10-26] MEDS ORDERED: MEROPENEM 1 GM in NS 100 ML IV SCH (22:00)
--- NOTE | 2022-10-28 13:32 | NUR ---
Airline Captain re: social service liaison referral and homelessness The patient was not seen as he left AMA prior to being seen by social service manager.
== END 2022-10-26 19:55 | disposition left against medical advice (07) | DRG 344 ==
LOC: SED 03:27 → SMU 10:47
PROVIDERS: ADMIT Preventive Medicine Preventive Medicine/Occupational Environmental Medicine; ATTEND Preventive Medicine Preventive Medicine/Occupational Environmental Medicine
DX: M86.8X6 Other osteomyelitis, lower leg (principal); E44.1 Mild protein-calorie malnutrition; E83.51 Hypocalcemia; E88.09 Other disorders of plasma-protein metabolism, not elsewhere classified; L97.919 Non-pressure chronic ulcer of unspecified part of right lower leg with unspecified severity; D64.9 Anemia, unspecified; D75.839 Thrombocytosis, unspecified; E87.6 Hypokalemia; Z20.822 Contact with and (suspected) exposure to COVID-19; R73.9 Hyperglycemia, unspecified; Z53.29 Procedure and treatment not carried out because of patient's decision for other reasons; Z88.1 Allergy status to other antibiotic agents; Z79.899 Other long term (current) drug therapy; Z68.24 Body mass index [BMI] 24.0-24.9, adult
CPT/HCPCS: 36415; 73590-TC; 80053; 83605; 85025; 85651-TC; 86140; 87040; 87070-TC; 87081; 96365; 96375; 99285; J0692; J1885; J2185; J3370

== ENCOUNTER 2022-11-04 10:51 | Emergency (ER) | payer MEDICAID ==
[~2022-11-04] VITALS: Ht 170.2 cm; Wt 81.6 kg
[2022-11-04 11:13] VITALS: BP_SYST 145
[2022-11-04] MEDS ORDERED: PIPERACILLIN/TAZO 3.375 GM in NS 50 ML IV ONE (11:45)
[2022-11-04] MEDS ORDERED: VANCOMYCIN HCL 1,000 MG in NS 250 ML IV ONE (11:45)
[2022-11-04] MEDS ORDERED: NACL 0.9% 2,000 ML IV ONE (11:45)
[2022-11-04 12:05] LABS: BASOPHILS % (AUTO) 0.3 % (0.0-2.0); EOSINOPHILS # (AUTO) 0.3 K/uL (0.0-0.4); EOSINOPHILS % (AUTO) 3.6 % (0.0-4.0); HEMATOCRIT 32.3 % (36-54); HEMOGLOBIN 10.7 g/dL (14.0-18.0); LYMPHOCYTES # (AUTO) 1.8 K/uL (1.0-5.5); LYMPHOCYTES % (AUTO) 23.3 % (20.5-51.5); MEAN CORPUSCULAR HEMOGLOBIN 27 pg (27-31); MEAN CORPUSCULAR HGB CONC 33 % (32-36); MEAN CORPUSCULAR VOLUME 83 fL (79.0-98.0); MONOCYTES # (AUTO) 0.6 K/uL (0.0-1.0); MONOCYTES % (AUTO) 7.8 % (1.7-9.3); PLATELET COUNT (AUTO) 569 K/uL (130-430); RED BLOOD CELL COUNT(AUTO) 3.91 MIL/uL (4.2-6.2); RED CELL DISTRIBUTION WIDTH 14.6 % (9.0-15.0); WHITE BLOOD COUNT (AUTO) 7.7 K/uL (4.8-10.8)
[2022-11-04] MEDS ORDERED: PIPERACILLIN/TAZOBACTAM 3.375 GM/VIAL (ZOSYN) IV ONE (12:12)
[2022-11-04] MEDS ORDERED: VANCOMYCIN HCL 1000 MG/VIAL IV ONE (12:12)
[2022-11-04 12:19] LABS: ANION GAP 8 (5-15); CALCIUM 8.4 mg/dL (8.4-11.0); CHLORIDE 104 mmol/L (98-107); CREATININE 0.81 mg/dL (0.55-1.30); GFR AFRICAN AMERICAN 134 mL/min (>90); GLUCOSE 127 mg/dL (70-99); UREA NITROGEN, BLOOD 15 mg/dL (8-21)
[2022-11-04 12:22] LABS: ERYTHROCYTE SEDIMENTATION RATE 48 MM/HR (0-15)
[2022-11-04 12:26] LABS: ALANINE AMINOTRANSFERASE 19 U/L (12-78); ALBUMIN 3.1 g/dL (3.4-4.8); ASPARTATE AMINOTRANSFERASE 16 U/L (10-37); C-REACTIVE PROTEIN QUANT 2.4 mg/dL (0-0.5); TOTAL BILIRUBIN 0.3 mg/dL (0.0-1.0)
[2022-11-04] MEDS ORDERED: CLIN-142 PO (17:11)
[2022-11-04] MEDS ORDERED: TRAM50TA2 PO (17:11)
[2022-11-04] MEDS ORDERED: BACITRACIN 1 GM OINT TP ONE (18:05)
[2022-11-04 18:16] VITALS: BP_SYST 136
== END 2022-11-04 18:16 | disposition home or self-care (01) ==
LOC: SED 10:51
DX: L03.115 Cellulitis of right lower limb (principal); M86.9 Osteomyelitis, unspecified; M79.661 Pain in right lower leg; R50.9 Fever, unspecified; Z79.899 Other long term (current) drug therapy; Z20.822 Contact with and (suspected) exposure to COVID-19
CPT/HCPCS: 99285; 96365; 71045; 96367; 87426; 80053; 85025; 85651; 86140; 87040; 84484; 36415; 93005; 73590; 83605; J2543; J3370

== ENCOUNTER 2022-12-19 00:13 | Emergency (ER) | payer MEDICAID ==
[~2022-12-19] VITALS: Ht 172.7 cm; Wt 81.6 kg
[~2022-12-19 00:13] MED LIST changes: +CLIN-142 PO; +TRAM50TA2 PO
[2022-12-19 00:32] VITALS: BP_SYST 151; PULSE 84; RESP 19; TEMP 98.1; O2SAT 100
[2022-12-19 02:39] LABS: BASOPHILS % (AUTO) 0.6 % (0.0-2.0); EOSINOPHILS # (AUTO) 0.1 K/uL (0.0-0.4); EOSINOPHILS % (AUTO) 2.4 % (0.0-4.0); HEMATOCRIT 34.7 % (36-54); HEMOGLOBIN 11.2 g/dL (14.0-18.0); LYMPHOCYTES % (AUTO) 33.1 % (20.5-51.5); MEAN CORPUSCULAR HEMOGLOBIN 27 pg (27-31); MEAN CORPUSCULAR HGB CONC 32 % (32-36); MEAN CORPUSCULAR VOLUME 83 fL (79.0-98.0); MONOCYTES # (AUTO) 0.3 K/uL (0.0-1.0); MONOCYTES % (AUTO) 5.6 % (1.7-9.3); NEUTROPHILS # (AUTO) 3.5 K/uL (1.8-7.7); NEUTROPHILS % (AUTO) 58.3 % (40.0-70.0); PLATELET COUNT (AUTO) 537 K/uL (130-430); RED BLOOD CELL COUNT(AUTO) 4.17 MIL/uL (4.2-6.2); RED CELL DISTRIBUTION WIDTH 16.2 % (9.0-15.0)
[2022-12-19 02:54] LABS: ALBUMIN 3.2 g/dL (3.4-4.8); CALCIUM 8.6 mg/dL (8.4-11.0); CREATININE 1.04 mg/dL (0.55-1.30); TOTAL BILIRUBIN 0.1 mg/dL (0.0-1.0)
[2022-12-19] MEDS ORDERED: KETOROLAC TROMETHAMINE 30 MG VIAL IM ONE (04:00)
[2022-12-19] MEDS ORDERED: IBUP-1969 PO (04:26)
[2022-12-19 04:51] VITALS: BP_SYST 126; PULSE 99; RESP 18; TEMP 98; O2SAT 99
== END 2022-12-19 04:51 | disposition home or self-care (01) ==
LOC: SED 00:13
DX: S81.801A Unspecified open wound, right lower leg, initial encounter (principal); L03.115 Cellulitis of right lower limb; Z79.899 Other long term (current) drug therapy; X58.XXXA Exposure to other specified factors, initial encounter; Y93.89 Activity, other specified; Y92.89 Other specified places as the place of occurrence of the external cause; Y99.8 Other external cause status
CPT/HCPCS: 99283; 80053; 85025; 87040; 36415; 96372; J1885

== ENCOUNTER 2022-12-25 08:33 | Emergency (ER) | payer MEDICAID ==
[~2022-12-25] VITALS: Ht 162.6 cm; Wt 72.6 kg
[~2022-12-25 08:33] MED LIST changes: +IBUP-1969 PO
--- NOTE | 2022-12-25 08:43 | NUR ---
Patient to ER bed 05 to gown for evaluation. Side rails up.
[2022-12-25 08:44] VITALS: BP_SYST 154; PULSE 85; RESP 18; TEMP 98.3; O2SAT 98
--- NOTE | 2022-12-25 08:45 | NUR ---
ER at bedside examining patient.
[2022-12-25 09:34] LABS: BASOPHILS % (AUTO) 0.4 % (0.0-2.0); EOSINOPHILS # (AUTO) 0.1 K/uL (0.0-0.4); EOSINOPHILS % (AUTO) 1.8 % (0.0-4.0); HEMATOCRIT 35.5 % (36-54); HEMOGLOBIN 11.4 g/dL (14.0-18.0); LYMPHOCYTES # (AUTO) 1.5 K/uL (1.0-5.5); LYMPHOCYTES % (AUTO) 21.2 % (20.5-51.5); MEAN CORPUSCULAR HEMOGLOBIN 27 pg (27-31); MEAN CORPUSCULAR HGB CONC 32 % (32-36); MEAN CORPUSCULAR VOLUME 84 fL (79.0-98.0); MONOCYTES # (AUTO) 0.6 K/uL (0.0-1.0); MONOCYTES % (AUTO) 8.6 % (1.7-9.3); NEUTROPHILS # (AUTO) 4.9 K/uL (1.8-7.7); PLATELET COUNT (AUTO) 527 K/uL (130-430); RED BLOOD CELL COUNT(AUTO) 4.22 MIL/uL (4.2-6.2); RED CELL DISTRIBUTION WIDTH 16.3 % (9.0-15.0); WHITE BLOOD COUNT (AUTO) 7.2 K/uL (4.8-10.8)
[2022-12-25 09:36] LABS: ERYTHROCYTE SEDIMENTATION RATE 23 MM/HR (0-15)
[2022-12-25 09:51] LABS: CALCIUM 8.6 mg/dL (8.4-11.0); CREATININE 0.94 mg/dL (0.55-1.30)
[2022-12-25 09:56] LABS: ALBUMIN 3.5 g/dL (3.4-4.8); TOTAL BILIRUBIN 0.2 mg/dL (0.0-1.0)
--- NOTE | 2022-12-25 10:18 | NUR ---
DR JIAMES IN ROOM FOR EXAM
--- NOTE | 2022-12-25 10:33 | NUR ---
NOTIFIED ED ADMITTING, CARMEL, REGARDING 'S REQEUST FOR ADMISSION/TRANSFER. PER , PT IS STABLE FOR TRANSFER. WILL CONTACT FACILITATOR REGARDING THIS MATTER. PER FACESHEET: [facility] [employer]
[2022-12-25] MEDS ORDERED: cefTRIAXone 1 GM VIAL IM ONE (10:45)
[2022-12-25] MEDS ORDERED: VANCOMYCIN HCL 1,000 MG in NS 250 ML IV ONE (10:45)
[2022-12-25] MEDS ORDERED: VANCOMYCIN HCL 1000 MG/VIAL IV ONE (10:48)
--- NOTE | 2022-12-25 10:53 | NUR ---
NOTIFIED SOURCING CONSULTANT, LASHELL, PT WANTS TO LEAVE AMA AND NOT BE ADMITTED.
[2022-12-25] MEDS ORDERED: cefTRIAXone 1 GM IVPB PREMIX 50 ML IV ONE (11:00)
--- NOTE | 2022-12-25 12:59 | NUR ---
PT UP TO BATHROOM, IV FLUIDS INFUSIG WELL.
--- NOTE | 2022-12-25 13:47 | NUR ---
Patient does not wish to proceed with medical care recommended by DR MEJIA. Patient given information related to possible complications, up to and including , which could occur as a result of leaving hospital at this time. Patient verbalizes understanding of risks involved leaving against medical advice. Patient has signed AMA form.
[2022-12-25 13:48] VITALS: BP_SYST 154; PULSE 85; RESP 18; TEMP 98.3; O2SAT 98
== END 2022-12-25 13:47 | disposition left against medical advice (07) ==
LOC: SED 08:33
DX: M86.8X6 Other osteomyelitis, lower leg (principal); M79.661 Pain in right lower leg; Z48.02 Encounter for removal of sutures; Z79.899 Other long term (current) drug therapy
CPT/HCPCS: 99284; 80053; 85025; 85651; 87040; 36415; 73590; J0696; J3370

== ENCOUNTER 2022-12-26 21:46 | Inpatient (IN) | payer MEDICAID ==
[~2022-12-26] VITALS: Ht 172.7 cm; Wt 81.6 kg
[2022-12-26 22:36] VITALS: BP_SYST 131; PULSE 100; RESP 19; TEMP 98.1; O2SAT 96
[2022-12-27 00:30] LABS: BASOPHILS % (AUTO) 0.5 % (0.0-2.0); EOSINOPHILS # (AUTO) 0.2 K/uL (0.0-0.4); EOSINOPHILS % (AUTO) 4.7 % (0.0-4.0); HEMOGLOBIN 11.8 g/dL (14.0-18.0); LYMPHOCYTES # (AUTO) 1.7 K/uL (1.0-5.5); LYMPHOCYTES % (AUTO) 32.8 % (20.5-51.5); MEAN CORPUSCULAR HEMOGLOBIN 28 pg (27-31); MEAN CORPUSCULAR HGB CONC 33 % (32-36); MEAN CORPUSCULAR VOLUME 84 fL (79.0-98.0); MONOCYTES # (AUTO) 0.5 K/uL (0.0-1.0); MONOCYTES % (AUTO) 8.8 % (1.7-9.3); NEUTROPHILS # (AUTO) 2.8 K/uL (1.8-7.7); NEUTROPHILS % (AUTO) 53.2 % (40.0-70.0); PLATELET COUNT (AUTO) 468 K/uL (130-430); RED BLOOD CELL COUNT(AUTO) 4.28 MIL/uL (4.2-6.2); WHITE BLOOD COUNT (AUTO) 5.2 K/uL (4.8-10.8)
[2022-12-27 00:31] LABS: CALCIUM 8.8 mg/dL (8.4-11.0); CREATININE 0.96 mg/dL (0.55-1.30); POTASSIUM 3.7 mmol/L (3.5-5.1)
[2022-12-27 00:35] LABS: ALBUMIN 3.6 g/dL (3.4-4.8); TOTAL BILIRUBIN 0.2 mg/dL (0.0-1.0); TOTAL PROTEIN, SERUM 6.9 g/dL (6.4-8.3)
[2022-12-27 00:38] LABS: ERYTHROCYTE SEDIMENTATION RATE 28 MM/HR (0-15)
[2022-12-27 00:55] LABS: METHAMPHETAMINES SCREEN,URINE POSITIVE (NEG <=500); URINE AMPHETAMINE POSITIVE (NEG <=500)
[2022-12-27 00:56] LABS: BARBITURATE, URINE NEGATIVE (NEG <=200); BENZODIAZEPINE, URINE NEGATIVE (NEG <=150); CANNABINOID, URINE NEGATIVE (NEG <=50); COCAINE, URINE NEGATIVE (NEG <=150); OPIATE, URINE NEGATIVE (NEG <=100); PHENCYCLIDINE SCREEN,URINE NEGATIVE (NEG <=25); UR TRICYCLIC ANTIDEPRESSANTS NEGATIVE (NEG <=300); URINE METHADONE NEGATIVE (NEG <=200); URINE OXYCODONE SCREEN NEGATIVE (NEG <=100); URINE PROPOXYPHENE SCREEN NEGATIVE (NEG <=300)
[2022-12-27] MEDS ORDERED: IBUP-1969 PO (02:34)
[2022-12-27] MEDS ORDERED: OLAN5TAB39 PO (02:34)
[2022-12-27] MEDS ORDERED: CIPR500T5 PO (02:34)
[2022-12-27] MEDS ORDERED: SMZ/TMP (02:34)
[2022-12-27] MEDS ORDERED: CEPH-548 PO (02:34)
[2022-12-27] MEDS ORDERED: VANCOMYCIN HCL 1,000 MG in NS 250 ML IV ONE (07:00)
[2022-12-27] MEDS ORDERED: VANCOMYCIN HCL 1000 MG/VIAL IV ONE ×2 (07:41)
[2022-12-27] MEDS ORDERED: MORPHINE 2 MG/ML INJ. SYRINGE IVP ONE (07:45)
[2022-12-27] MEDS ORDERED: ACETAMINOPHEN 325 MG TABLET PO PRN ×2 (08:30→08:45)
[2022-12-27] MEDS ORDERED: ONDANSETRON HCL 4 MG/2 ML VIAL IVP PRN (08:30)
[2022-12-27] MEDS ORDERED: NACL 0.9% 1,000 ML IV SCH (08:30)
[2022-12-27] MEDS ORDERED: DOCUSATE SODIUM 100 MG CAPSULE PO PRN (08:30)
[2022-12-27] MEDS ORDERED: POTASSIUM CHLORIDE 20 MEQ TAB.PRT.SR PO PRN (08:30)
[2022-12-27] MEDS ORDERED: MORPHINE 2 MG/ML INJ. SYRINGE IVP PRN ×2 (08:30)
[2022-12-27] MEDS ORDERED: MAGNESIUM SULFATE 50 ML IV PRN (08:30)
[2022-12-27] MEDS ORDERED: LORazepam 2 MG/ML VIAL IVP PRN (08:30)
[2022-12-27] MEDS ORDERED: ZOLPIDEM TARTRATE 5 MG TABLET PO PRN (08:30)
[2022-12-27] MEDS ORDERED: NALOXONE HCL 0.4 MG/ML AMP (NARCAN) IVP PRN (08:30)
[2022-12-27] MEDS ORDERED: MUPIROCIN 2% TOPICAL OINTMENT 22 GM NS PRN (08:30)
[2022-12-27 13:03] VITALS: BP_SYST 144; PULSE 92; RESP 15; TEMP 98
[2022-12-27] MEDS ORDERED: VANCOMYCIN HCL 750 MG in NS 250 ML IV SCH (16:00)
[2022-12-27 19:19] VITALS: BP_SYST 125; PULSE 103; RESP 16; TEMP 98.4; O2SAT 100
[2022-12-27] MEDS ORDERED: OLANZapine 5 MG TABLET PO SCH (21:00)
[2022-12-27] MEDS ORDERED: CEFEPIME 2 GM in D5W 100 ML IV SCH (21:00)
== END 2022-12-27 20:50 | disposition left against medical advice (07) | DRG 344 ==
LOC: SED 21:46 → SMU 12-27 05:59
PROVIDERS: ADMIT General Practice; ATTEND General Practice
DX: M86.161 Other acute osteomyelitis, right tibia and fibula (principal); L03.115 Cellulitis of right lower limb; F39 Unspecified mood [affective] disorder; Z53.29 Procedure and treatment not carried out because of patient's decision for other reasons; Z91.199 Patient's noncompliance with other medical treatment and regimen due to unspecified reason; Z79.1 Long term (current) use of non-steroidal anti-inflammatories (NSAID); Z79.899 Other long term (current) drug therapy
CPT/HCPCS: 36415; 80053; 80307; 83037; 83605; 85025; 85651-TC; 87040; 87070-TC; 87081; 96365; 96366; 96375; 96376; 99285; G0482; J0692; J2270; J3370; J7050; J7060

== ENCOUNTER 2023-01-10 06:57 | Inpatient (IN) | payer MEDICAID ==
[~2023-01-10] VITALS: Ht 172.7 cm; Wt 81.6 kg
[~2023-01-10 06:57] MED LIST changes: +CEPH-548 PO; +CIPR500T5 PO; -HYDR-3917 PO; -IBUP-1971 PO; +OLAN5TAB39 PO; +SMZ/TMP; -TRAM50TA2 PO
[2023-01-10 07:02] VITALS: BP_SYST 140; PULSE 86; RESP 16; TEMP 97.7; O2SAT 100
[2023-01-10] MEDS ORDERED: VANCOMYCIN HCL 1,000 MG in NS 250 ML IV ONE (08:00)
[2023-01-10 08:10] LABS: BASOPHILS % (AUTO) 0.4 % (0.0-2.0); EOSINOPHILS # (AUTO) 0.3 K/uL (0.0-0.4); EOSINOPHILS % (AUTO) 4.1 % (0.0-4.0); HEMATOCRIT 36.1 % (36-54); LYMPHOCYTES # (AUTO) 1.9 K/uL (1.0-5.5); LYMPHOCYTES % (AUTO) 24.9 % (20.5-51.5); MEAN CORPUSCULAR HEMOGLOBIN 28 pg (27-31); MEAN CORPUSCULAR HGB CONC 33 % (32-36); MEAN CORPUSCULAR VOLUME 83 fL (79.0-98.0); MONOCYTES # (AUTO) 0.6 K/uL (0.0-1.0); MONOCYTES % (AUTO) 8.7 % (1.7-9.3); NEUTROPHILS # (AUTO) 4.6 K/uL (1.8-7.7); NEUTROPHILS % (AUTO) 61.9 % (40.0-70.0); PLATELET COUNT (AUTO) 433 K/uL (130-430); RED BLOOD CELL COUNT(AUTO) 4.33 MIL/uL (4.2-6.2); WHITE BLOOD COUNT (AUTO) 7.5 K/uL (4.8-10.8)
[2023-01-10] MEDS ORDERED: VANCOMYCIN HCL 1000 MG/VIAL IV ONE (08:13)
[2023-01-10 08:20] LABS: ERYTHROCYTE SEDIMENTATION RATE 18 MM/HR (0-15)
[2023-01-10 08:24] LABS: CALCIUM 8.5 mg/dL (8.4-11.0); CREATININE 0.94 mg/dL (0.55-1.30)
[2023-01-10 08:38] LABS: ALBUMIN 3.6 g/dL (3.4-4.8); TOTAL BILIRUBIN 0.2 mg/dL (0.0-1.0)
[2023-01-10 09:47] LABS: BARBITURATE, URINE NEGATIVE (NEG <=200); BENZODIAZEPINE, URINE POSITIVE (NEG <=150); CANNABINOID, URINE NEGATIVE (NEG <=50); COCAINE, URINE NEGATIVE (NEG <=150); METHAMPHETAMINES SCREEN,URINE POSITIVE (NEG <=500); OPIATE, URINE NEGATIVE (NEG <=100); PHENCYCLIDINE SCREEN,URINE NEGATIVE (NEG <=25); UR TRICYCLIC ANTIDEPRESSANTS NEGATIVE (NEG <=300); URINE AMPHETAMINE POSITIVE (NEG <=500); URINE METHADONE NEGATIVE (NEG <=200); URINE OXYCODONE SCREEN NEGATIVE (NEG <=100); URINE PROPOXYPHENE SCREEN NEGATIVE (NEG <=300)
[2023-01-10] MEDS ORDERED: ACETAMINOPHEN 500 MG TABLET PO ONE (18:00)
[2023-01-10 20:30] VITALS: O2SAT 98
[2023-01-10 20:56] VITALS: BP_SYST 144; PULSE 92; RESP 16; TEMP 98.8; O2SAT 100
[2023-01-10] MEDS ORDERED: HYDROcodone/ACETAMIN 5-325 MG TAB (NORCO/ VICODIN) PO PRN (21:00)
[2023-01-10] MEDS ORDERED: ACETAMINOPHEN 325 MG TABLET PO PRN (21:00)
[2023-01-10] MEDS ORDERED: HYDROcodone/ACETAMIN 10-325 MG TAB PO PRN (21:00)
[2023-01-10] MEDS ORDERED: NALOXONE HCL 0.4 MG/ML AMP (NARCAN) IVP PRN ×2 (21:00)
[2023-01-10] MEDS ORDERED: TEMAZEPAM 15 MG CAPSULE PO PRN (21:00)
[2023-01-10] MEDS ORDERED: ONDANSETRON HCL 4 MG/2 ML VIAL IVP PRN (21:00)
== END 2023-01-11 01:20 | disposition left against medical advice (07) | DRG 344 ==
LOC: SED 06:57 → STU 17:13
PROVIDERS: ADMIT Internal Medicine; ATTEND Internal Medicine
DX: M86.8X6 Other osteomyelitis, lower leg (principal); F15.90 Other stimulant use, unspecified, uncomplicated; Z79.1 Long term (current) use of non-steroidal anti-inflammatories (NSAID); Z79.899 Other long term (current) drug therapy; Z59.00 Homelessness unspecified; Z91.199 Patient's noncompliance with other medical treatment and regimen due to unspecified reason
CPT/HCPCS: 36415; 73590-TC; 80053; 80307; 83605; 85025; 85651-TC; 87040; 87070-TC; 87075-TC; 87081; 96365; 96366; 99285; G0378; J3370; J7050

== ENCOUNTER 2023-01-12 06:51 | Emergency (ER) | payer MEDICAID ==
[~2023-01-12] VITALS: Ht 172.7 cm; Wt 81.6 kg
[2023-01-12 07:25] VITALS: BP_SYST 143; PULSE 90; RESP 20; TEMP 97.8; O2SAT 100
[2023-01-12 08:21] LABS: BASOPHILS # (AUTO) 0.1 K/uL (0.0-0.2); EOSINOPHILS # (AUTO) 0.2 K/uL (0.0-0.4); EOSINOPHILS % (AUTO) 3.2 % (0.0-4.0); HEMATOCRIT 36.2 % (36-54); HEMOGLOBIN 11.7 g/dL (14.0-18.0); LYMPHOCYTES # (AUTO) 1.7 K/uL (1.0-5.5); LYMPHOCYTES % (AUTO) 22.9 % (20.5-51.5); MEAN CORPUSCULAR HEMOGLOBIN 27 pg (27-31); MEAN CORPUSCULAR HGB CONC 32 % (32-36); MEAN CORPUSCULAR VOLUME 83 fL (79.0-98.0); MONOCYTES # (AUTO) 0.6 K/uL (0.0-1.0); MONOCYTES % (AUTO) 7.6 % (1.7-9.3); NEUTROPHILS # (AUTO) 4.9 K/uL (1.8-7.7); NEUTROPHILS % (AUTO) 65.3 % (40.0-70.0); PLATELET COUNT (AUTO) 441 K/uL (130-430); RED BLOOD CELL COUNT(AUTO) 4.34 MIL/uL (4.2-6.2); RED CELL DISTRIBUTION WIDTH 15.6 % (9.0-15.0); WHITE BLOOD COUNT (AUTO) 7.5 K/uL (4.8-10.8)
[2023-01-12 08:35] LABS: CALCIUM 8.8 mg/dL (8.4-11.0); CREATININE 0.99 mg/dL (0.55-1.30)
[2023-01-12 08:40] LABS: ERYTHROCYTE SEDIMENTATION RATE 23 MM/HR (0-15)
[2023-01-12 08:49] LABS: ALBUMIN 3.8 g/dL (3.4-4.8); TOTAL BILIRUBIN 0.2 mg/dL (0.0-1.0)
[2023-01-12] MEDS ORDERED: PIPERACILLIN/TAZO 3.375 GM in NS 50 ML IV ONE (09:00)
[2023-01-12] MEDS ORDERED: VANCOMYCIN HCL 1,000 MG in NS 250 ML IV ONE (09:00)
[2023-01-12] MEDS ORDERED: PIPERACILLIN/TAZOBACTAM 3.375 GM/VIAL (ZOSYN) IV ONE (09:23)
[2023-01-12] MEDS ORDERED: VANCOMYCIN HCL 1000 MG/VIAL IV ONE (09:23)
[2023-01-12 10:52] VITALS: BP_SYST 122; PULSE 87; RESP 16; TEMP 97.6; O2SAT 100
== END 2023-01-12 10:51 | disposition short-term general hospital (02) ==
LOC: SED 06:51
DX: M86.8X6 Other osteomyelitis, lower leg (principal); M79.661 Pain in right lower leg; F15.90 Other stimulant use, unspecified, uncomplicated; Z79.899 Other long term (current) drug therapy
CPT/HCPCS: 99285; 96365; 80053; 85025; 85651; 87040; 36415; 73590; 96368; 83605; 82397; J2543; J3370

== ENCOUNTER 2023-02-13 14:34 | Inpatient (IN) | payer MEDICAID ==
[~2023-02-13] VITALS: Ht 170.2 cm; Wt 81.6 kg
[2023-02-13 14:35] VITALS: BP_SYST 110; PULSE 114; RESP 18; TEMP 97.8; O2SAT 100
[2023-02-13] MEDS ORDERED: LORazepam 2 MG/ML VIAL IVP ONE (15:45)
[2023-02-13] MEDS ORDERED: NACL 0.9% 1,000 ML IV ONE ×2 (15:45→18:00)
[2023-02-13 16:50] LABS: BASOPHILS # (AUTO) 0.1 K/uL (0.0-0.2); BASOPHILS % (AUTO) 0.3 % (0.0-2.0); EOSINOPHILS % (AUTO) 0.1 % (0.0-4.0); HEMATOCRIT 40.2 % (36-54); HEMOGLOBIN 13.3 g/dL (14.0-18.0); LYMPHOCYTES # (AUTO) 1.9 K/uL (1.0-5.5); LYMPHOCYTES % (AUTO) 9.1 % (20.5-51.5); MEAN CORPUSCULAR HEMOGLOBIN 27 pg (27-31); MEAN CORPUSCULAR HGB CONC 33 % (32-36); MEAN CORPUSCULAR VOLUME 81 fL (79.0-98.0); MONOCYTES # (AUTO) 1.5 K/uL (0.0-1.0); MONOCYTES % (AUTO) 7.3 % (1.7-9.3); NEUTROPHILS # (AUTO) 17.3 K/uL (1.8-7.7); NEUTROPHILS % (AUTO) 83.2 % (40.0-70.0); PLATELET COUNT (AUTO) 430 K/uL (130-430); RED BLOOD CELL COUNT(AUTO) 4.96 MIL/uL (4.2-6.2); RED CELL DISTRIBUTION WIDTH 15.2 % (9.0-15.0); WHITE BLOOD COUNT (AUTO) 20.8 K/uL (4.8-10.8)
[2023-02-13 16:52] LABS: CALCIUM 8.4 mg/dL (8.4-11.0); CREATININE 5.82 mg/dL (0.55-1.30); POTASSIUM 5.1 mmol/L (3.5-5.1)
[2023-02-13 17:21] LABS: ERYTHROCYTE SEDIMENTATION RATE 16 MM/HR (0-15)
[2023-02-13 17:25] LABS: ALBUMIN 5.1 g/dL (3.4-4.8); TOTAL BILIRUBIN 1.6 mg/dL (0.0-1.0)
[2023-02-13] MEDS ORDERED: PIPERACILLIN/TAZOBACTAM 2.25 GM in NS 50 ML IV ONE (18:15)
[2023-02-13] MEDS ORDERED: VANCOMYCIN HCL 1,000 MG in NS 250 ML IV ONE (18:15)
[2023-02-13 18:20] LABS: CKMB RELATIVE INDEX 1.1 (0.0-2.9); CREATINE KINASE MB 23.4 ng/mL (0-3.6)
[2023-02-13] MEDS ORDERED: VANCOMYCIN HCL 1000 MG/VIAL IV ONE (19:06)
[2023-02-13] MEDS ORDERED: PIPERACILLIN/TAZOBACTAM 2.25 GM VIAL IV ONE (19:07)
[2023-02-13] MEDS ORDERED: 0.45% NACL 1,000 ML IV SCH (20:00)
[2023-02-13 21:43] VITALS: BP_SYST 125; PULSE 104; RESP 18; TEMP 97.4
[2023-02-13] MEDS ORDERED: HYDROcodone/ACETAMIN 5-325 MG TAB (NORCO/ VICODIN) PO PRN (23:15)
[2023-02-14 00:30] VITALS: BP_SYST 118; PULSE 97; RESP 18; TEMP 97.6; O2SAT 98
[2023-02-14] MEDS ORDERED: SODIUM BICARBONATE 8.4% JECT 50 MEQ/50 ML SYRINGE ONE (00:35)
[2023-02-14] MEDS: SODIUM BICARBONATE 8.4% JECT 100 MEQ in 0.45% NACL 1,000 ML IV SCH ×3 (00:44→22:47)
[2023-02-14 04:21] LABS: BARBITURATE, URINE NEGATIVE (NEG <=200); METHAMPHETAMINES SCREEN,URINE POSITIVE (NEG <=500); URINE AMPHETAMINE POSITIVE (NEG <=500)
[2023-02-14 04:22] LABS: BENZODIAZEPINE, URINE POSITIVE (NEG <=150); CANNABINOID, URINE NEGATIVE (NEG <=50); COCAINE, URINE NEGATIVE (NEG <=150); OPIATE, URINE POSITIVE (NEG <=100); PHENCYCLIDINE SCREEN,URINE NEGATIVE (NEG <=25); UR TRICYCLIC ANTIDEPRESSANTS NEGATIVE (NEG <=300); URINE METHADONE NEGATIVE (NEG <=200); URINE OXYCODONE SCREEN NEGATIVE (NEG <=100); URINE PROPOXYPHENE SCREEN NEGATIVE (NEG <=300)
[2023-02-14 05:16] LABS: BILIRUBIN,URINE NEGATIVE (NEGATIVE); BLOOD, URINE 1+ (NEGATIVE); CLARITY/URINE Clear (CLEAR); COLOR,URINE YELLOW (YELLOW); GLUCOSE,URINE NEGATIVE (NEGATIVE); NITRITE, URINE NEGATIVE (NEGATIVE); PROTEIN URINE 1+ (NEGATIVE); UROBILINOGEN,URINE 0.2 (0.2-1.0)
[2023-02-14 05:17] LABS: KETONES,URINE NEGATIVE (NEGATIVE); LEUKOCYTE ESTERASE ,URINE NEGATIVE (NEGATIVE)
[2023-02-14 05:31] LABS: BACTERIA,URINE RARE /HPF (None Seen)
[2023-02-14 05:51] LABS: BASOPHILS % (AUTO) 0.1 % (0.0-2.0); EOSINOPHILS # (AUTO) 0.2 K/uL (0.0-0.4); EOSINOPHILS % (AUTO) 1.6 % (0.0-4.0); HEMATOCRIT 37.5 % (36-54); HEMOGLOBIN 12.4 g/dL (14.0-18.0); LYMPHOCYTES # (AUTO) 1.5 K/uL (1.0-5.5); LYMPHOCYTES % (AUTO) 13.1 % (20.5-51.5); MEAN CORPUSCULAR HEMOGLOBIN 27 pg (27-31); MEAN CORPUSCULAR HGB CONC 33 % (32-36); MEAN CORPUSCULAR VOLUME 81 fL (79.0-98.0); MONOCYTES # (AUTO) 0.8 K/uL (0.0-1.0); NEUTROPHILS # (AUTO) 8.8 K/uL (1.8-7.7); NEUTROPHILS % (AUTO) 78.2 % (40.0-70.0); PLATELET COUNT (AUTO) 324 K/uL (130-430); RED BLOOD CELL COUNT(AUTO) 4.63 MIL/uL (4.2-6.2); RED CELL DISTRIBUTION WIDTH 14.8 % (9.0-15.0); WHITE BLOOD COUNT (AUTO) 11.3 K/uL (4.8-10.8)
[2023-02-14 06:21] LABS: ALBUMIN 3.8 g/dL (3.4-4.8); CALCIUM 7.9 mg/dL (8.4-11.0); CREATININE 2.04 mg/dL (0.55-1.30); PHOSPHORUS 4.9 mg/dL (2.7-4.5); POTASSIUM 3.4 mmol/L (3.5-5.1); TOTAL PROTEIN, SERUM 7.3 g/dL (6.4-8.3); VANCOMYCIN,RANDOM 11.1 ug/mL
[2023-02-14] MEDS: PIPERACILLIN/TAZO 3.375 GM in NS 50 ML IV SCH ×3 (06:40→22:46)
[2023-02-14 08:00] VITALS: O2SAT 99
[2023-02-14 08:01] LABS: CKMB RELATIVE INDEX 0.9 (0.0-2.9)
[2023-02-14] MEDS ORDERED: NALOXONE HCL 0.4 MG/ML AMP (NARCAN) IVP PRN ×3 (10:45)
[2023-02-14] MEDS ORDERED: ONDANSETRON HCL 4 MG/2 ML VIAL IVP PRN (10:45)
[2023-02-14] MEDS ORDERED: ACETAMINOPHEN 325 MG TABLET PO PRN ×2 (10:45)
[2023-02-14] MEDS ORDERED: HYDROcodone/ACETAMIN 5-325 MG TAB (NORCO/ VICODIN) PO PRN (10:45)
[2023-02-14 12:00] VITALS: BP_SYST 117; PULSE 90; RESP 20; TEMP 98.3; O2SAT 99
[2023-02-14] MEDS ORDERED: POTASSIUM CHLORIDE 20 MEQ TAB.PRT.SR PO ONE (12:00)
[2023-02-14] MEDS: LORazepam 2 MG/ML VIAL IVP PRN ×2 (14:07→22:46)
[2023-02-14 16:00] VITALS: BP_SYST 122; PULSE 86; RESP 16; TEMP 97.8; O2SAT 99
[2023-02-14 20:00] VITALS: BP_SYST 121; PULSE 92; RESP 18; TEMP 97.8; O2SAT 100
[2023-02-14] MEDS ORDERED: VANCOMYCIN HCL 1,250 MG in NS 250 ML IV SCH (20:00)
[2023-02-14] MEDS ORDERED: VANCOMYCIN HCL 1,000 MG in NS 250 ML IV SCH (20:00)
[2023-02-14] MEDS: OLANZapine 5 MG TABLET PO SCH (20:11)
[2023-02-14] MEDS: MORPHINE 2 MG/ML INJ. SYRINGE IVP PRN (20:12)
[2023-02-15] VITALS: BP_SYST 118; PULSE 88; RESP 18; TEMP 97.6; O2SAT 100
[2023-02-15] MEDS: MORPHINE 2 MG/ML INJ. SYRINGE IVP PRN ×3 (00:41→21:27)
[2023-02-15] MEDS: LORazepam 2 MG/ML VIAL IVP PRN ×2 (05:10→17:32)
[2023-02-15] MEDS: PIPERACILLIN/TAZO 3.375 GM in NS 50 ML IV SCH (05:11)
[2023-02-15 05:56] LABS: BASOPHILS % (AUTO) 0.4 % (0.0-2.0); EOSINOPHILS # (AUTO) 0.3 K/uL (0.0-0.4); EOSINOPHILS % (AUTO) 3.8 % (0.0-4.0); HEMATOCRIT 34.7 % (36-54); HEMOGLOBIN 11.4 g/dL (14.0-18.0); LYMPHOCYTES # (AUTO) 1.4 K/uL (1.0-5.5); LYMPHOCYTES % (AUTO) 19.4 % (20.5-51.5); MEAN CORPUSCULAR HEMOGLOBIN 27 pg (27-31); MEAN CORPUSCULAR HGB CONC 33 % (32-36); MEAN CORPUSCULAR VOLUME 82 fL (79.0-98.0); MONOCYTES # (AUTO) 0.6 K/uL (0.0-1.0); MONOCYTES % (AUTO) 7.7 % (1.7-9.3); NEUTROPHILS # (AUTO) 5.1 K/uL (1.8-7.7); NEUTROPHILS % (AUTO) 68.7 % (40.0-70.0); PLATELET COUNT (AUTO) 292 K/uL (130-430); RED BLOOD CELL COUNT(AUTO) 4.25 MIL/uL (4.2-6.2); RED CELL DISTRIBUTION WIDTH 14.8 % (9.0-15.0); WHITE BLOOD COUNT (AUTO) 7.4 K/uL (4.8-10.8)
[2023-02-15 06:05] LABS: CALCIUM 7.9 mg/dL (8.4-11.0); CREATININE 0.98 mg/dL (0.55-1.30); PHOSPHORUS 2.8 mg/dL (2.7-4.5); POTASSIUM 3.3 mmol/L (3.5-5.1)
[2023-02-15 07:30] LABS: CKMB RELATIVE INDEX 0.6 (0.0-2.9); CREATINE KINASE MB 2.8 ng/mL (0-3.6)
[2023-02-15 08:39] VITALS: PULSE 94; O2SAT 100
[2023-02-15] MEDS ORDERED: VANCOMYCIN HCL 1,000 MG in NS 250 ML IV SCH (09:00)
[2023-02-15] MEDS: SODIUM BICARBONATE 8.4% JECT 100 MEQ in 0.45% NACL 1,000 ML IV SCH (11:55)
[2023-02-15] MEDS: HYDROcodone/ACETAMIN 10-325 MG TAB PO PRN (12:49)
[2023-02-15] MEDS: MEROPENEM 1 GM in NS 100 ML IV SCH ×2 (14:20→21:12)
[2023-02-15 15:49] VITALS: BP_SYST 131; PULSE 90; RESP 18; TEMP 97.8; O2SAT 99
[2023-02-15 20:00] VITALS: O2SAT 99
[2023-02-15 20:30] VITALS: BP_SYST 125; PULSE 76; RESP 20; TEMP 97.5; O2SAT 99
[2023-02-15] MEDS: OLANZapine 5 MG TABLET PO SCH (21:15)
[2023-02-16] VITALS (7 sets, daily range): BP systolic 120–135; PULSE 78–82; RESP 18–20; TEMP 97.5–98.9; O2SAT 96–99
[2023-02-16] MEDS: SODIUM BICARBONATE 8.4% JECT 100 MEQ in 0.45% NACL 1,000 ML IV SCH ×3 (00:19→14:46)
[2023-02-16 06:01] LABS: ERYTHROCYTE SEDIMENTATION RATE 19 MM/HR (0-15)
[2023-02-16 06:14] LABS: BASOPHILS # (AUTO) 0.1 K/uL (0.0-0.2); BASOPHILS % (AUTO) 0.9 % (0.0-2.0); EOSINOPHILS # (AUTO) 0.5 K/uL (0.0-0.4); EOSINOPHILS % (AUTO) 8.1 % (0.0-4.0); HEMATOCRIT 36.5 % (36-54); HEMOGLOBIN 11.8 g/dL (14.0-18.0); LYMPHOCYTES % (AUTO) 34.9 % (20.5-51.5); MEAN CORPUSCULAR HEMOGLOBIN 27 pg (27-31); MEAN CORPUSCULAR HGB CONC 32 % (32-36); MEAN CORPUSCULAR VOLUME 83 fL (79.0-98.0); MONOCYTES # (AUTO) 0.7 K/uL (0.0-1.0); MONOCYTES % (AUTO) 11.5 % (1.7-9.3); NEUTROPHILS # (AUTO) 2.6 K/uL (1.8-7.7); NEUTROPHILS % (AUTO) 44.6 % (40.0-70.0); PLATELET COUNT (AUTO) 304 K/uL (130-430); RED BLOOD CELL COUNT(AUTO) 4.38 MIL/uL (4.2-6.2); RED CELL DISTRIBUTION WIDTH 14.9 % (9.0-15.0); WHITE BLOOD COUNT (AUTO) 5.8 K/uL (4.8-10.8)
[2023-02-16 06:26] LABS: CALCIUM 8.3 mg/dL (8.4-11.0); CREATININE 0.75 mg/dL (0.55-1.30); POTASSIUM 4.4 mmol/L (3.5-5.1)
[2023-02-16] MEDS: HYDROcodone/ACETAMIN 10-325 MG TAB PO PRN (12:49)
[2023-02-16] MEDS: MEROPENEM 1 GM in NS 100 ML IV SCH ×4 (14:47→20:49)
[2023-02-16] MEDS: MORPHINE 2 MG/ML INJ. SYRINGE IVP PRN ×2 (14:57→21:58)
[2023-02-16] MEDS: OLANZapine 5 MG TABLET PO SCH (20:49)
[2023-02-17 00:15] VITALS: BP_SYST 132; PULSE 80; RESP 18; TEMP 98.8; O2SAT 98
[2023-02-17 04:08] LABS: ERYTHROCYTE SEDIMENTATION RATE 18 MM/HR (0-15)
[2023-02-17 04:15] LABS: BASOPHILS # (AUTO) 0.1 K/uL (0.0-0.2); BASOPHILS % (AUTO) 0.9 % (0.0-2.0); EOSINOPHILS # (AUTO) 0.5 K/uL (0.0-0.4); EOSINOPHILS % (AUTO) 8.1 % (0.0-4.0); HEMATOCRIT 36.8 % (36-54); LYMPHOCYTES # (AUTO) 2.1 K/uL (1.0-5.5); LYMPHOCYTES % (AUTO) 33.8 % (20.5-51.5); MEAN CORPUSCULAR HEMOGLOBIN 27 pg (27-31); MEAN CORPUSCULAR HGB CONC 33 % (32-36); MEAN CORPUSCULAR VOLUME 83 fL (79.0-98.0); MONOCYTES # (AUTO) 0.7 K/uL (0.0-1.0); MONOCYTES % (AUTO) 10.9 % (1.7-9.3); NEUTROPHILS # (AUTO) 2.9 K/uL (1.8-7.7); NEUTROPHILS % (AUTO) 46.3 % (40.0-70.0); PLATELET COUNT (AUTO) 355 K/uL (130-430); RED BLOOD CELL COUNT(AUTO) 4.42 MIL/uL (4.2-6.2); RED CELL DISTRIBUTION WIDTH 15.2 % (9.0-15.0); WHITE BLOOD COUNT (AUTO) 6.2 K/uL (4.8-10.8)
[2023-02-17 04:41] LABS: ALBUMIN 3.1 g/dL (3.4-4.8); CALCIUM 8.4 mg/dL (8.4-11.0); CREATININE 1.21 mg/dL (0.55-1.30); PHOSPHORUS 3.2 mg/dL (2.7-4.5); POTASSIUM 4.1 mmol/L (3.5-5.1); TOTAL BILIRUBIN 0.1 mg/dL (0.0-1.0); TOTAL PROTEIN, SERUM 6.5 g/dL (6.4-8.3)
[2023-02-17] MEDS: LORazepam 2 MG/ML VIAL IVP PRN (04:42)
[2023-02-17] MEDS: MEROPENEM 1 GM in NS 100 ML IV SCH (05:38)
[2023-02-17] MEDS: SODIUM BICARBONATE 8.4% JECT 100 MEQ in 0.45% NACL 1,000 ML IV SCH (05:39)
[2023-02-17 11:22] VITALS: BP_SYST 131; PULSE 79; RESP 17; TEMP 97.9; O2SAT 96
[2023-02-17 13:36] VITALS: BP_SYST 131; PULSE 79; RESP 17; TEMP 97.9; O2SAT 99
== END 2023-02-17 14:05 | disposition home or self-care (01) | DRG 469 ==
LOC: SED 14:34 → STU 18:15
PROVIDERS: ADMIT Specialist; ATTEND Specialist
DX: N17.0 Acute kidney failure with tubular necrosis (principal); M62.82 Rhabdomyolysis; E87.1 Hypo-osmolality and hyponatremia; E88.09 Other disorders of plasma-protein metabolism, not elsewhere classified; M86.661 Other chronic osteomyelitis, right tibia and fibula; S81.801A Unspecified open wound, right lower leg, initial encounter; E87.6 Hypokalemia; D64.9 Anemia, unspecified; R73.9 Hyperglycemia, unspecified; F15.10 Other stimulant abuse, uncomplicated; E83.52 Hypercalcemia; Z79.1 Long term (current) use of non-steroidal anti-inflammatories (NSAID); Z79.899 Other long term (current) drug therapy; Z72.0 Tobacco use; Z59.00 Homelessness unspecified; Y92.89 Other specified places as the place of occurrence of the external cause; Y99.8 Other external cause status; V18.4XXA Pedal cycle driver injured in noncollision transport accident in traffic accident, initial encounter; Y93.55 Activity, bike riding
CPT/HCPCS: 36415; 71045; 73590-TC; 76770; 80048; 80053; 80202; 80307; 81000; 82435; 82550; 82553; 83605; 83735; 84100; 84302; 84550; 85025; 85610-TC; 85651-TC; 85730-TC; 87040; 96374; 97116-GP; 97163-GP; 99285; G0378; J2060; J2185; J2270; J2543; J3370; J7030; J7050

== ENCOUNTER 2023-03-30 00:31 | Emergency (ER) | payer MEDICAID ==
[~2023-03-30] VITALS: Ht 170.2 cm; Wt 74.8 kg
[~2023-03-30 00:31] MED LIST changes: -CEPH-548 PO; -CIPR500T5 PO; -CLIN-142 PO; -SMZ/TMP
[2023-03-30 01:29] VITALS: BP_SYST 144; PULSE 104; RESP 18; TEMP 98.9; O2SAT 98
[2023-03-30] MEDS ORDERED: NACL 0.9% 1,000 ML IV ONE (02:00)
[2023-03-30] MEDS ORDERED: MORPHINE 4 MG INJ. 4 MG/ML VIAL IVP ONE (02:00)
[2023-03-30] MEDS ORDERED: VANCOMYCIN HCL 1,000 MG in NS 250 ML IV ONE (02:00)
[2023-03-30] MEDS ORDERED: VANCOMYCIN HCL 1000 MG/VIAL IV ONE (02:19)
[2023-03-30 02:36] LABS: CALCIUM 8.7 mg/dL (8.4-11.0); CREATININE 1.01 mg/dL (0.55-1.30); POTASSIUM 3.4 mmol/L (3.5-5.1)
[2023-03-30 02:37] LABS: BASOPHILS % (AUTO) 0.5 % (0.0-2.0); EOSINOPHILS # (AUTO) 0.2 K/uL (0.0-0.4); EOSINOPHILS % (AUTO) 2.7 % (0.0-4.0); HEMATOCRIT 28.7 % (36-54); HEMOGLOBIN 9.2 g/dL (14.0-18.0); LYMPHOCYTES # (AUTO) 1.6 K/uL (1.0-5.5); MEAN CORPUSCULAR HEMOGLOBIN 26 pg (27-31); MEAN CORPUSCULAR HGB CONC 32 % (32-36); MEAN CORPUSCULAR VOLUME 80 fL (79.0-98.0); MONOCYTES # (AUTO) 0.6 K/uL (0.0-1.0); MONOCYTES % (AUTO) 8.5 % (1.7-9.3); NEUTROPHILS # (AUTO) 4.8 K/uL (1.8-7.7); NEUTROPHILS % (AUTO) 66.3 % (40.0-70.0); PLATELET COUNT (AUTO) 446 K/uL (130-430); RED BLOOD CELL COUNT(AUTO) 3.58 MIL/uL (4.2-6.2); RED CELL DISTRIBUTION WIDTH 15.5 % (9.0-15.0); WHITE BLOOD COUNT (AUTO) 7.2 K/uL (4.8-10.8)
[2023-03-30 02:41] LABS: ALBUMIN 3.4 g/dL (3.4-4.8); TOTAL BILIRUBIN 0.3 mg/dL (0.0-1.0); TOTAL PROTEIN, SERUM 6.9 g/dL (6.4-8.3)
[2023-03-30] MEDS ORDERED: CEPH-548 PO (03:26)
[2023-03-30 05:28] VITALS: BP_SYST 142; PULSE 97; RESP 18; TEMP 98; O2SAT 98
== END 2023-03-30 05:06 | disposition home or self-care (01) ==
LOC: SED 00:31
DX: L03.115 Cellulitis of right lower limb (principal); M79.661 Pain in right lower leg; Z79.899 Other long term (current) drug therapy
CPT/HCPCS: 99284; 96365; 96366; 96375; 80053; 85025; 87040; 36415; J3370; J2270

== ENCOUNTER 2023-05-05 19:24 | Emergency (ER) | payer MEDICAID ==
[~2023-05-05] VITALS: Ht 172.7 cm; Wt 81.6 kg
[~2023-05-05 19:24] MED LIST changes: +CEPH-548 PO
[2023-05-05 19:53] VITALS: BP_SYST 129; PULSE 110; RESP 18; TEMP 97.8; O2SAT 100
[2023-05-05] MEDS ORDERED: NABU-140 PO (20:09)
[2023-05-05] MEDS ORDERED: MORPHINE 4 MG INJ. 4 MG/ML VIAL IM ONE (20:15)
[2023-05-05 20:56] VITALS: BP_SYST 134; PULSE 100; RESP 18; TEMP 97.8; O2SAT 100
== END 2023-05-05 20:56 | disposition home or self-care (01) ==
LOC: SED 19:24
DX: M86.9 Osteomyelitis, unspecified (principal); M79.661 Pain in right lower leg; F15.90 Other stimulant use, unspecified, uncomplicated; Z79.899 Other long term (current) drug therapy
CPT/HCPCS: 99283; 96372; J2270

== ENCOUNTER 2023-06-08 21:01 | Emergency (ER) | payer MEDICAID ==
[~2023-06-08] VITALS: Ht 170.2 cm; Wt 81.6 kg
[~2023-06-08 21:01] MED LIST changes: +NABU-140 PO
[2023-06-08 21:29] VITALS: BP_SYST 135; PULSE 104; RESP 18; TEMP 98.3; O2SAT 100
[2023-06-09] MEDS ORDERED: NABU-140 PO (00:15)
[2023-06-09] MEDS ORDERED: DOXY100T2 PO (00:15)
[2023-06-09] MEDS ORDERED: DOXYCYCLINE HYCLATE 100 MG CAPSULE PO ONE (00:30)
[2023-06-09] MEDS ORDERED: DOXYCYCLINE HYCLATE 100 MG CAPSULE ONE (00:32)
[2023-06-09 00:45] VITALS: BP_SYST 135; PULSE 104; RESP 18; TEMP 98.3; O2SAT 100
== END 2023-06-09 00:45 | disposition home or self-care (01) ==
LOC: SED 21:01
DX: L97.919 Non-pressure chronic ulcer of unspecified part of right lower leg with unspecified severity (principal); M86.60 Other chronic osteomyelitis, unspecified site; F15.90 Other stimulant use, unspecified, uncomplicated; Z76.0 Encounter for issue of repeat prescription; Z79.899 Other long term (current) drug therapy
CPT/HCPCS: 99283

== ENCOUNTER 2023-09-23 13:29 | Emergency (ER) | payer MEDICAID ==
[~2023-09-23] VITALS: Ht 167.6 cm; Wt 79.4 kg
[~2023-09-23 13:29] MED LIST changes: +DOXY100T2 PO
[2023-09-23 13:44] VITALS: BP_SYST 159; PULSE 112; RESP 18; TEMP 97.9; O2SAT 99
[2023-09-23 15:25] LABS: BASOPHILS % (AUTO) 0.5 % (0.0-2.0); EOSINOPHILS # (AUTO) 0.2 K/uL (0.0-0.4); EOSINOPHILS % (AUTO) 3.7 % (0.0-4.0); HEMATOCRIT 35.2 % (36-54); HEMOGLOBIN 11.6 g/dL (14.0-18.0); LYMPHOCYTES # (AUTO) 1.5 K/uL (1.0-5.5); LYMPHOCYTES % (AUTO) 29.4 % (20.5-51.5); MEAN CORPUSCULAR HEMOGLOBIN 25 pg (27-31); MEAN CORPUSCULAR HGB CONC 33 % (32-36); MEAN CORPUSCULAR VOLUME 76 fL (79.0-98.0); MONOCYTES # (AUTO) 0.5 K/uL (0.0-1.0); MONOCYTES % (AUTO) 10.1 % (1.7-9.3); NEUTROPHILS # (AUTO) 2.8 K/uL (1.8-7.7); NEUTROPHILS % (AUTO) 56.3 % (40.0-70.0); PLATELET COUNT (AUTO) 483 K/uL (130-430); RED BLOOD CELL COUNT(AUTO) 4.62 MIL/uL (4.2-6.2)
[2023-09-23 15:41] LABS: CALCIUM 9.3 mg/dL (8.4-11.0); CREATININE 0.95 mg/dL (0.55-1.30); POTASSIUM 3.6 mmol/L (3.5-5.1)
[2023-09-23 15:55] LABS: PROTHROMBIN TIME 9.9 SECS (9.5-12.5)
[2023-09-23] MEDS ORDERED: IBUP-1971 PO (16:10)
[2023-09-23] MEDS ORDERED: HYDR-3917 PO (16:10)
[2023-09-23 16:59] VITALS: BP_SYST 159; PULSE 112; RESP 18; TEMP 97.9; O2SAT 99
== END 2023-09-23 16:54 | disposition home or self-care (01) ==
LOC: SED 13:29
DX: M79.661 Pain in right lower leg (principal); G89.29 Other chronic pain; F15.90 Other stimulant use, unspecified, uncomplicated; Z79.899 Other long term (current) drug therapy
CPT/HCPCS: 36415; 73590; 80048; 83605; 85025; 85610; 85730; 99284

== ENCOUNTER 2023-10-14 22:38 | Emergency (ER) | payer MEDICAID ==
[~2023-10-14] VITALS: Ht 170.2 cm; Wt 79.4 kg
[~2023-10-14 22:38] MED LIST changes: +HYDR-3917 PO; +IBUP-1971 PO
[2023-10-14 23:07] VITALS: BP_SYST 164; PULSE 98; RESP 16; TEMP 98.4; O2SAT 98
[2023-10-14] MEDS ORDERED: NAPR-1172 PO (23:39)
[2023-10-14] MEDS: KETOROLAC TROMETHAMINE 60 MG/2 ML VIAL IM ONE (23:56)
[2023-10-14] MEDS: cefTRIAXone 1 GM in LIDOCAINE 1%, 20 ML MDV 2.1 ML IM ONE (23:56)
[2023-10-15 00:03] VITALS: BP_SYST 164; PULSE 98; RESP 16; TEMP 98.4; O2SAT 98
== END 2023-10-15 00:03 | disposition home or self-care (01) ==
LOC: SED 22:38
DX: L03.115 Cellulitis of right lower limb (principal); Z79.899 Other long term (current) drug therapy
CPT/HCPCS: 99284; 96372; J0696; J1885; J2001

== ENCOUNTER 2023-11-04 21:55 | Emergency (ER) | payer MEDICAID ==
[~2023-11-04] VITALS: Ht 170.2 cm; Wt 79.4 kg
[~2023-11-04 21:55] MED LIST changes: +NAPR-1172 PO
[2023-11-04 22:09] VITALS: BP_SYST 154; PULSE 107; RESP 20; TEMP 97.5; O2SAT 99
[2023-11-04] MEDS: cefTRIAXone 1 GM in LIDOCAINE 1%, 20 ML MDV 2.1 ML IM ONE (23:05)
[2023-11-04] MEDS: KETOROLAC TROMETHAMINE 60 MG/2 ML VIAL IM ONE (23:09)
[2023-11-04 23:50] VITALS: BP_SYST 146; PULSE 98; RESP 18; TEMP 98.1; O2SAT 97
== END 2023-11-04 23:50 | disposition home or self-care (01) ==
LOC: SED 21:55
DX: L03.115 Cellulitis of right lower limb (principal); F15.90 Other stimulant use, unspecified, uncomplicated; Z98.890 Other specified postprocedural states; Z79.899 Other long term (current) drug therapy; Z79.2 Long term (current) use of antibiotics
CPT/HCPCS: 99284; 96372; J0696; J1885; J2001

== ENCOUNTER 2024-02-12 13:44 | Emergency (ER) | payer MEDICAID ==
[~2024-02-12] VITALS: Ht 170.2 cm; Wt 79.4 kg
[2024-02-12 13:57] VITALS: BP_SYST 193; PULSE 109; RESP 18; TEMP 98.3; O2SAT 100
== END 2024-02-12 14:30 | disposition left against medical advice (07) ==
LOC: SED 13:44
DX: M79.661 Pain in right lower leg (principal); Z53.21 Procedure and treatment not carried out due to patient leaving prior to being seen by health care provider

== ENCOUNTER 2024-03-03 00:01 | Emergency (ER) | payer MEDICAID ==
[~2024-03-03] VITALS: Ht 170.2 cm; Wt 79.4 kg
[2024-03-03 00:14] VITALS: BP_SYST 166; PULSE 102; RESP 16; TEMP 97.5; O2SAT 98
[2024-03-03] MEDS ORDERED: MUPI15CR12 TP (01:23)
[2024-03-03] MEDS: BACITRACIN 1 GM OINT TP ONE (01:25)
[2024-03-03 01:44] VITALS: BP_SYST 166; PULSE 102; RESP 16; TEMP 97.5; O2SAT 98
== END 2024-03-03 01:37 | disposition home or self-care (01) ==
LOC: SED 00:01
DX: S80.921A Unspecified superficial injury of right lower leg, initial encounter (principal); Z79.899 Other long term (current) drug therapy; Z79.2 Long term (current) use of antibiotics; X58.XXXA Exposure to other specified factors, initial encounter; Y93.89 Activity, other specified; Y92.89 Other specified places as the place of occurrence of the external cause; Y99.8 Other external cause status
CPT/HCPCS: 99283